=== PATIENT | male | born 1950 | race Caucasian/White ===

== ENCOUNTER 2016-12-23 19:49 | Inpatient (IN) ==
[2016-12-24] MEDS: Levothyroxine 25 MCG TABLET PO SCH (04:49)
[2016-12-24 05:38] LABS: INR 1.1; Prothrombin Time 12.2 Seconds (9.4-12.1)
[2016-12-24 05:39] LABS: Basophils # 0.1 K/mcL (0.0-0.2); Basophils % 0.9 %; Eosinophils # 0.3 K/mcL (0.0-0.6); Eosinophils % 2.9 %; Hematocrit 41.4 % (37.5-50.1); Hemoglobin 13.9 g/dL (12.9-16.9); Lymphocytes % 21.5 %; Mean Corpuscular HGB Conc 33.6 g/dL (31.6-35.5); Mean Corpuscular Hemoglobin 29.3 pg (28.0-33.3); Mean Corpuscular Volume 87.3 fL (83.0-100.0); Mean Platelet Volume 10.1 fL (9.4-12.4); Monocytes # 0.7 K/mcL (0.0-1.3); Monocytes % 7.5 %; Platelet Count 315 K/mcL (140-400); Red Blood Count 4.74 M/mcL (4.19-5.50); Red Cell Distribution Width 13.2 % (11.5-14.5); Segmented Neutrophils % 66.2 %
[2016-12-24 05:41] LABS: Activated Partial Thrombo Time 28.6 Seconds (26.0-36.0)
[2016-12-24 05:45] LABS: BUN/Creatinine Ratio 10 (6-26); Blood Urea Nitrogen 13 mg/dL (8-26); Calcium 9.6 mg/dL (8.6-10.8); Carbon Dioxide 26 mEq/L (19-29); Chloride 103 mEq/L (98-109); Glucose 103 mg/dL (70-99); Osmolality,Calculated 286 (280-300); Potassium 4.2 mEq/L (3.5-4.5); Sodium 138 mEq/L (136-145); eGFR For African Americans > 60 (> 60); eGFR For Non-African Americans 58 (> 60)
[2016-12-24] MEDS: Cortisporin *EAR* SOLN 10 ML BOTTLE OT SCH ×5 (06:39→21:15)
--- NOTE | 2016-12-24 08:19 | Internal Med History&Physical ---
Date of Encounter: 12/24/16 Time of Encounter: 08:16 Assessment and Plan (1) CVA (cerebrovascular accident due to intracerebral hemorrhage) Current visit: Yes Status: Acute He initially presented to the hospital for cardiac catheterization after an abnormal stress test. He had PCI of the RCA on 12/09 2016. Postcatheterization stroke alert was called for change in mental status. Patient was found to have a large intraparenchymal hemorrhage involving the left temporal parietal occipital region with edema and midline shift. Patient was to continue her surgery. It was believed to be a bleed secondary to antiplatelet agents. There were no major vascular abnormalities in CTA repeat imaging's were stable without any progression. Patient also developed paroxysmal atrial flutter. He was controlled with medication. Patient has a language impairment. Patient is having some behavioral issues with poor by mouth intake initially. Patient is a phasic with some words but unclear. PT OT and speech will be consult. Qualifiers: Intracerebral hemorrhage etiology: nontraumatic Cerebral hemorrhage location: unspecified cerebral location Laterality: unspecified laterality Qualified Code(s): I61.9 - Nontraumatic intracerebral hemorrhage, unspecified Internal Medicine - H&P: HPI Admitted From: Intrahospital Transfer Plans for Post Hospital Care: Home History of present illness: Mr. Herndon is a 66 year old male who is transferred to this facility for rehabilitation. He initially presented to the hospital for cardiac catheterization after an abnormal stress test. He had PCI of the RCA on 2016. Postcatheterization stroke alert was called for change in mental status. Patient was found to have a large intraparenchymal hemorrhage involving the left temporal parietal occipital region with edema and midline shift. Patient was to continue her surgery. It was believed to be a bleed secondary to antiplatelet agents. There were no major vascular abnormalities in CTA repeat imaging's were stable without any progression. Patient also developed paroxysmal atrial flutter. He was controlled with medication. Patient has a language impairment. Patient is having some behavioral issues with poor by mouth intake initially. Patient is a phasic with some words but unclear. Past Med Surg Social Fam HX - Past Medical History Medical history: CVA, hyperlipidemia, hypertension, kidney stones, thyroid disease - Past Surgical History Surgical History: other - Social History Smoking Status: Never smoker Smokeless Tobacco Status: No Alcohol use: occasionally Drug use: none - Family History Brother Living Status: Age at : 58 Hx Family Cardiac Disorders: Yes Internal Medicine - H&P: Meds Amlodipine [Norvasc] 5 mg PO DAILY 12/23/16 [History] Aspirin Enteric Coated [Aspirin EC] 81 mg PO DAILY 12/23/16 [History] Atorvastatin Calcium [Lipitor] 80 mg PO HS 12/23/16 [History] Fenofibrate [Tricor] 54 mg PO DAILY 12/23/16 [History] Metoprolol [Lopressor] 25 mg PO BID 12/23/16 [History] Neomycin/Polymyxin B Sulf/Hc [Afedowds-Zkilpivbd-Fj Ear Susp] 10 ml OT QID 12/23 [History] Allergies No Known Allergies Allergy (Verified 12/23/16 22:09) ROS unobtainable: due to mental status All Systems PM: A 10-system review of systems was performed and is negative for pertinent findings except as documented above in the HPI. - Constitutional Vitals: Temp Pulse Resp BP Pulse Ox 98.6 F 71 19 133/85 98 12/24/16 06:22 12/24/16 06:22 12/24/16 06:22 12/24/16 06:22 12/24/16 06:22 General appearance: Present: A&O X 1, no acute distress - Cardiovascular Cardiovascular exam: Present: +S2. Absent: diastolic murmur, gallop, rubs, systolic murmur - GI/Abdominal GI/Abdominal exam: Present: normal bowel sounds, soft, no peritoneal signs. Absent: distended, tenderness - Extremities Exam Extremities exam: Present: warm, radial pulses palpable and symetrical. Absent : calf tenderness, cyanotic, pedal edema - Neurological Exam Neurological exam: Present: alert, altered, speech deficit - Expanded Neurological Exam Neurological exam expanded: Present: inattentive, receptive aphasia Speech: Present: garbled Internal Med - H&P Results - Labs CBC & Chem 7: 12/24/16 05:00 12/24/16 05:00 Labs: Short CBC 12/24/16 Range/Units 05:00 WBC 9.1 (4.3-11.1) K/mcL Hgb 13.9 (12.9-16.9) g/dL Hct 41.4 (37.5-50.1) % Plt Count 315 (140-400) K/mcL Neutrophils # 6.0 (1.6-8.9) K/mcL BMP 12/24/16 05:00 Sodium 138 Potassium 4.2 Chloride 103 Carbon Dioxide 26 BUN 13 Creatinine 1.24 Glucose 103 H Calcium 9.6 - VTE Documentation of Mechanical Device: Graduated compression elastic hosiery
[2016-12-24] MEDS: Famotidine 20 MG TABLET PO SCH ×2 (09:09→21:16)
[2016-12-24] MEDS: *HR* Amiodarone 200 MG TABLET PO SCH (09:09)
[2016-12-24] MEDS: Aspirin Enteric Coated 81 MG Tablet PO SCH (09:09)
[2016-12-24] MEDS: Sennosides/Docusate Sodium TABLET PO SCH ×2 (09:10→21:16)
--- NOTE | 2016-12-24 15:46 | Physcial Medicine-Consult Note ---
Date of Encounter: 12/24/16 Time of Encounter: 15:41 Physical Medicine - AP (1) CVA (cerebrovascular accident due to intracerebral hemorrhage) Status: Acute Assessment and plan: 1. Mr. Herndon suffers from severe aphasia. Patient suffers from significant ataxia which makes him a significant fall risk. We will continue with intensive PT/OT/ST/TR and rehab psych to address gait, transfers, safety, ADLs, speech, and swallow. I would recommend a sitter for the patient in light of his ataxia, poor insight into his deficits and his fall risk. Estimated length of stay 4-6 weeks. Code(s): I61.9 - Nontraumatic intracerebral hemorrhage, unspecified SNOMED Code(s): 271251406 Physical Medicine - HPI - Data of Consult Consult date: 12/24/16 Requesting Physician: Gilberto Baltazar DO Primary Care Provider: PCP NO - Consult Narrative Reason for consult: Intracranial hemorrhage History of present illness: Mr. Herndon is a 66 year old male who presented to an OSH on 12/09/16 for a cardiac catheterization. Following his catheterization, he developed a headache , difficulty with speech and became somnolent. 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 Patient was not a neurosurgical candidate due to dose of effient. He was treated with mannitol. Patient continues to suffer from severe aphasia and ataxia. He was transferred for inpatient rehabilitation. CC: Gilberto Baltazar DO Past Med Surg Social Fam HX - Past Medical History Medical history: CVA, hyperlipidemia, hypertension, kidney stones, thyroid disease - Past Surgical History Surgical History: other - Social History Smoking Status: Never smoker Smokeless Tobacco Status: No Alcohol use: occasionally Drug use: none - Family History Brother Living Status: Age at : 58 Hx Family Cardiac Disorders: Yes Medications and Allergies Amlodipine [Norvasc] 5 mg PO DAILY 12/23/16 [History] Aspirin Enteric Coated [Aspirin EC] 81 mg PO DAILY 12/23/16 [History] Atorvastatin Calcium [Lipitor] 80 mg PO HS 12/23/16 [History] Fenofibrate [Tricor] 54 mg PO DAILY 12/23/16 [History] Metoprolol [Lopressor] 25 mg PO BID 12/23/16 [History] Neomycin/Polymyxin B Sulf/Hc [Tgxbbghh-Lbufgtizd-Xv Ear Susp] 10 ml OT QID 12/23 [History] Allergies No Known Allergies Allergy (Verified 12/23/16 22:09) ROS unobtainable: due to mental status Physical Medicine - Exam - Constitutional Vitals: Temp Pulse Resp BP Pulse Ox 98.2 F 66 18 92/54 95 12/24/16 11:16 12/24/16 11:16 12/24/16 11:16 12/24/16 11:16 12/24/16 11:16 Exam: Patient is lying in bed. Difficult to rouse. He is unable to follow commands. Not oriented to person, place or date, even with cues. Unable to name simple objects. - Head Head exam: Present: normal inspection - Respiratory Respiratory exam: Present: CTAB - Cardiovascular Cardiovascular exam: Present: RRR - GI/Abdominal GI/Abdominal exam: Present: normal bowel sounds, soft. Absent: tenderness - Extremities Exam Extremities exam: Absent: calf tenderness, tenderness Additional comments: Patient moves all 4 extremities. Unable to perform manual motor testing due to patients cognitive deficits. Physical Medicine - Results - Labs CBC & Chem 7: 12/24/16 05:00 12/24/16 05:00 Labs: Short CBC 12/24/16 Range/Units 05:00 WBC 9.1 (4.3-11.1) K/mcL Hgb 13.9 (12.9-16.9) g/dL Hct 41.4 (37.5-50.1) % Plt Count 315 (140-400) K/mcL Neutrophils # 6.0 (1.6-8.9) K/mcL BMP 12/24/16 05:00 Sodium 138 Potassium 4.2 Chloride 103 Carbon Dioxide 26 BUN 13 Creatinine 1.24 Glucose 103 H Calcium 9.6 Consult Discharge Plan - Plan Referrals: NO,PCP [Primary Care Provider] - (Neo Durbin MD Acct Exec 02/02/17 at 9:15 Himanshu Caraballo MD [facility] 04/15/17 at 8:30 )
[2016-12-24] MEDS: Fenofibrate 54 MG TABLET PO SCH (17:54)
[2016-12-24] MEDS: Mirtazapine 15 MG TABLET PO SCH (21:16)
[2016-12-25] MEDS: Levothyroxine 25 MCG TABLET PO SCH (04:56)
[2016-12-25] MEDS: Famotidine 20 MG TABLET PO SCH ×2 (10:08→21:02)
[2016-12-25] MEDS: Sennosides/Docusate Sodium TABLET PO SCH ×2 (10:08→21:03)
[2016-12-25] MEDS: Aspirin Enteric Coated 81 MG Tablet PO SCH (10:11)
[2016-12-25] MEDS: *HR* Amiodarone 200 MG TABLET PO SCH (10:11)
[2016-12-25] MEDS: Cortisporin *EAR* SOLN 10 ML BOTTLE OT SCH ×3 (10:12→21:02)
--- NOTE | 2016-12-25 14:27 | Internal Med Progress Note ---
Date of Encounter: 12/25/16 Time of Encounter: 14:00 - Assessment and plan (1) CVA (cerebrovascular accident due to intracerebral hemorrhage) Current Visit: Yes Status: Acute Assessment and plan: Since had a CVA and this is affecting cognitive speech and function physically Qualifiers: Intracerebral hemorrhage etiology: nontraumatic Cerebral hemorrhage location: unspecified cerebral location Laterality: unspecified laterality Qualified Code(s): I61.9 - Nontraumatic intracerebral hemorrhage, unspecified - Time Spent With Patient less than 15 minutes - Subjective Interval history: Patient was not interested in therapy was widening in complaining in and we had to abbreviate his session. He is really not cooperating and lying with his head on his arms on the desk. - Constitutional Vitals: Temp Pulse Resp BP Pulse Ox 97.8 F 75 18 94/55 96 12/25/16 06:57 12/25/16 06:57 12/25/16 06:57 12/25/16 06:57 12/25/16 06:57 General appearance: Present: A&O X 1, no acute distress - Head Head exam: Present: atraumatic, normal inspection, normocephalic - Neck Neck exam general surgery: Present: supple, trachea midline. Absent: lymphadenopathy - Respiratory Respiratory exam: Present: CTAB. Absent: accessory muscle use, rales, rhonchi, wheezes - Cardiovascular Cardiovascular exam: Present: RRR, +S1, +S2. Absent: diastolic murmur, gallop, rubs, systolic murmur - GI/Abdominal GI/Abdominal exam: Present: normal bowel sounds, soft, no peritoneal signs. Absent: distended, tenderness Internal Medicine: Result - Labs CBC & Chem 7: 12/24/16 05:00 12/24/16 05:00 Labs: Lab is stable - ABG Interpretation ABG results: PT/INR, D-dimer PT 12.2 Seconds (9.4-12.1) H 12/24/16 05:00 - VTE Documentation of Mechanical Device: Graduated compression elastic hosiery Consult Discharge Plan - Plan Referrals: NO,PCP [Primary Care Provider] - (Neo Durbin MD Loss Prevention Consultant 02/02/17 at 9:15 Himanshu Caraballo MD [facility] 04/15/17 at 8:30 )
[2016-12-25] MEDS: Fenofibrate 54 MG TABLET PO SCH (18:44)
[2016-12-25] MEDS: Mirtazapine 15 MG TABLET PO SCH (21:03)
[2016-12-26] MEDS: Levothyroxine 25 MCG TABLET PO SCH (05:48)
[2016-12-26] MEDS: Famotidine 20 MG TABLET PO SCH ×2 (08:16→20:15)
[2016-12-26] MEDS: *HR* Amiodarone 200 MG TABLET PO SCH (08:16)
[2016-12-26] MEDS: Aspirin Enteric Coated 81 MG Tablet PO SCH (08:17)
[2016-12-26] MEDS: Sennosides/Docusate Sodium TABLET PO SCH ×2 (08:18→20:15)
[2016-12-26] MEDS: Cortisporin *EAR* SOLN 10 ML BOTTLE OT SCH ×2 (10:24→16:18)
--- NOTE | 2016-12-26 15:34 | Internal Med Progress Note ---
Date of Encounter: 12/26/16 Time of Encounter: 15:00 - Assessment and plan (1) CVA (cerebrovascular accident due to intracerebral hemorrhage) Current Visit: Yes Status: Acute Assessment and plan: Patient had a cardiac catheter with stenting and subsequent left intraparenchymal bleed from the anabaptist area around the occipital. Qualifiers: Intracerebral hemorrhage etiology: nontraumatic Cerebral hemorrhage location: unspecified cerebral location Laterality: unspecified laterality Qualified Code(s): I61.9 - Nontraumatic intracerebral hemorrhage, unspecified - Time Spent With Patient less than 15 minutes - Subjective Interval history: Patient in my opinion shown significant improvement the last day or so. He still has a lot of trouble with word finding and but occasionally does say something that is coated.. - Constitutional Vitals: Temp Pulse Resp BP Pulse Ox 99.2 F 57 18 94/54 97 12/26/16 07:47 12/26/16 07:47 12/26/16 07:47 12/26/16 07:47 12/26/16 07:47 General appearance: Present: A&O X 1, no acute distress - Head Head exam: Present: atraumatic, normal inspection, normocephalic - Respiratory Respiratory exam: Present: CTAB. Absent: accessory muscle use, rales, rhonchi, wheezes - Cardiovascular Cardiovascular exam: Present: RRR, +S1, +S2. Absent: diastolic murmur, gallop, rubs, systolic murmur - GI/Abdominal GI/Abdominal exam: Present: normal bowel sounds, soft, no peritoneal signs. Absent: distended, tenderness Internal Medicine: Result - Labs CBC & Chem 7: 12/24/16 05:00 12/24/16 05:00 Labs: Laboratory data is stable - ABG Interpretation ABG results: PT/INR, D-dimer PT 12.2 Seconds (9.4-12.1) H 12/24/16 05:00 - VTE Documentation of Mechanical Device: Graduated compression elastic hosiery Consult Discharge Plan - Plan Referrals: NO,PCP [Primary Care Provider] - (Neo Durbin MD [employer] Worker 02/02/17 at 9:15 Himanshu Caraballo MD [facility] 04/15/17 at 8:30 )
[2016-12-26] MEDS: Fenofibrate 54 MG TABLET PO SCH (19:02)
[2016-12-26] MEDS: Mirtazapine 15 MG TABLET PO SCH (20:15)
[2016-12-27] MEDS: Levothyroxine 25 MCG TABLET PO SCH (05:38)
--- NOTE | 2016-12-27 08:56 | Internal Med Progress Note ---
Date of Encounter: 12/27/16 Time of Encounter: 08:54 - Assessment and plan (1) CVA (cerebrovascular accident due to intracerebral hemorrhage) Current Visit: Yes Status: Acute Assessment and plan: Mr. Herndon suffers from severe aphasia. Patient suffers from significant ataxia which makes him a significant fall risk. We will continue with intensive PT/OT/ST/TR and rehab psych to address gait, transfers, safety, ADLs, speech, and swallow. Qualifiers: Intracerebral hemorrhage etiology: nontraumatic Cerebral hemorrhage location: unspecified cerebral location Laterality: unspecified laterality Qualified Code(s): I61.9 - Nontraumatic intracerebral hemorrhage, unspecified - Time Spent With Patient less than 15 minutes - Subjective Interval history: No new voiced complaint. Still complains of generalized weakness. - Constitutional Vitals: Temp Pulse Resp BP Pulse Ox 98.3 F 90 16 91/58 96 12/26/16 18:47 12/26/16 18:47 12/26/16 18:47 12/26/16 18:47 12/26/16 18:47 General appearance: Present: A&O X 1, no acute distress - Respiratory Respiratory exam: Present: CTAB. Absent: accessory muscle use, rales, rhonchi, wheezes - Cardiovascular Cardiovascular exam: Present: RRR, +S1, +S2. Absent: diastolic murmur, gallop, rubs, systolic murmur - GI/Abdominal GI/Abdominal exam: Present: normal bowel sounds, soft, no peritoneal signs. Absent: distended, tenderness - Extremities Exam Extremities exam: Present: warm, radial pulses palpable and symetrical. Absent : calf tenderness, cyanotic, pedal edema - Expanded Neurological Exam Neurological exam expanded: Present: expressive aphasia, receptive aphasia Internal Medicine: Result - Labs CBC & Chem 7: 12/24/16 05:00 12/24/16 05:00 - ABG Interpretation ABG results: PT/INR, D-dimer PT 12.2 Seconds (9.4-12.1) H 12/24/16 05:00 - VTE Documentation of Mechanical Device: Graduated compression elastic hosiery Consult Discharge Plan - Plan Referrals: NO,PCP [Primary Care Provider] - (Neo Durbin MD Certifier 02/02/17 at 9:15 Himanshu Caraballo MD [facility] 04/15/17 at 8:30 )
[2016-12-27] MEDS: *HR* Amiodarone 200 MG TABLET PO SCH (09:00)
[2016-12-27] MEDS: Aspirin Enteric Coated 81 MG Tablet PO SCH (09:00)
[2016-12-27] MEDS: Sennosides/Docusate Sodium TABLET PO SCH ×2 (09:04→20:53)
[2016-12-27] MEDS: Famotidine 20 MG TABLET PO SCH ×2 (09:04→20:53)
[2016-12-27] MEDS: Fenofibrate 54 MG TABLET PO SCH (17:50)
[2016-12-27] MEDS: Mirtazapine 15 MG TABLET PO SCH (20:54)
[2016-12-28] MEDS: Levothyroxine 25 MCG TABLET PO SCH (05:40)
[2016-12-28] MEDS: *HR* Amiodarone 200 MG TABLET PO SCH (08:49)
[2016-12-28] MEDS: Famotidine 20 MG TABLET PO SCH ×2 (08:49→20:14)
[2016-12-28] MEDS: Sennosides/Docusate Sodium TABLET PO SCH ×2 (08:49→20:14)
[2016-12-28] MEDS: Aspirin Enteric Coated 81 MG Tablet PO SCH (08:49)
--- NOTE | 2016-12-28 11:43 | Internal Med Progress Note ---
Date of Encounter: 12/28/16 Time of Encounter: 11:42 - Assessment and plan (1) CVA (cerebrovascular accident due to intracerebral hemorrhage) Current Visit: Yes Status: Acute Assessment and plan: She does have a pretty significant intracerebral bleed left brain Qualifiers: Intracerebral hemorrhage etiology: nontraumatic Cerebral hemorrhage location: unspecified cerebral location Laterality: left Qualified Code(s): I61.9 - Nontraumatic intracerebral hemorrhage, unspecified - Time Spent With Patient less than 15 minutes - Subjective Interval history: Patient in my opinion shown significant improvement the last day or so. He still has a lot of trouble with word finding and but occasionally does say something that is coated.. - Constitutional Vitals: Temp Pulse Resp BP Pulse Ox 98.6 F 71 18 99/64 97 12/28/16 07:39 12/28/16 07:39 12/28/16 07:39 12/28/16 07:39 12/28/16 07:39 General appearance: Present: A&O X 1, no acute distress - Head Head exam: Present: atraumatic, normal inspection, normocephalic - Neck Neck exam general surgery: Present: supple, trachea midline. Absent: lymphadenopathy - Respiratory Respiratory exam: Present: CTAB. Absent: accessory muscle use, rales, rhonchi, wheezes - Cardiovascular Cardiovascular exam: Present: RRR, +S1, +S2. Absent: diastolic murmur, gallop, rubs, systolic murmur - GI/Abdominal GI/Abdominal exam: Present: normal bowel sounds, soft, no peritoneal signs. Absent: distended, tenderness Internal Medicine: Result - Labs CBC & Chem 7: 12/24/16 05:00 12/24/16 05:00 Labs: Lab is okay - ABG Interpretation ABG results: PT/INR, D-dimer PT 12.2 Seconds (9.4-12.1) H 12/24/16 05:00 - VTE Documentation of Mechanical Device: Graduated compression elastic hosiery Consult Discharge Plan - Plan Referrals: NO,PCP [Primary Care Provider] - (Neo Durbin MD Progress Worker 02/02/17 at 9:15 Himanshu Caraballo MD [facility] 04/15/17 at 8:30 )
[2016-12-28] MEDS: Fenofibrate 54 MG TABLET PO SCH (17:53)
[2016-12-28] MEDS: Mirtazapine 15 MG TABLET PO SCH (20:15)
[2016-12-29 05:33] LABS: Basophils # 0.1 K/mcL (0.0-0.2); Basophils % 1.1 %; Eosinophils # 0.2 K/mcL (0.0-0.6); Eosinophils % 3.1 %; Hematocrit 40.5 % (37.5-50.1); Hemoglobin 13.3 g/dL (12.9-16.9); Lymphocytes # 2.9 K/mcL (0.6-4.6); Lymphocytes % 40.2 %; Mean Corpuscular HGB Conc 32.8 g/dL (31.6-35.5); Mean Corpuscular Hemoglobin 29.2 pg (28.0-33.3); Mean Platelet Volume 9.9 fL (9.4-12.4); Monocytes # 0.5 K/mcL (0.0-1.3); Monocytes % 7.4 %; Neutrophils # 3.5 K/mcL (1.6-8.9); Platelet Count 381 K/mcL (140-400); Red Blood Count 4.55 M/mcL (4.19-5.50); Segmented Neutrophils % 47.2 %
[2016-12-29] MEDS: Levothyroxine 25 MCG TABLET PO SCH (05:41)
[2016-12-29 05:44] LABS: BUN/Creatinine Ratio 12 (6-26); Blood Urea Nitrogen 17 mg/dL (8-26); Calcium 9.7 mg/dL (8.6-10.8); Carbon Dioxide 25 mEq/L (19-29); Chloride 105 mEq/L (98-109); Glucose 93 mg/dL (70-99); Osmolality,Calculated 289 (280-300); Potassium 4.5 mEq/L (3.5-4.5); Sodium 139 mEq/L (136-145); eGFR For African Americans > 60 (> 60); eGFR For Non-African Americans 51 (> 60)
[2016-12-29] MEDS: Famotidine 20 MG TABLET PO SCH ×2 (10:46→20:10)
[2016-12-29] MEDS: *HR* Amiodarone 200 MG TABLET PO SCH (10:46)
[2016-12-29] MEDS: Aspirin Enteric Coated 81 MG Tablet PO SCH (10:46)
[2016-12-29] MEDS: Sennosides/Docusate Sodium TABLET PO SCH ×2 (10:46→20:11)
--- NOTE | 2016-12-29 13:10 | Internal Med Progress Note ---
Date of Encounter: 12/29/16 Time of Encounter: 13:09 - Assessment and plan (1) CVA (cerebrovascular accident due to intracerebral hemorrhage) Current Visit: Yes Status: Acute Assessment and plan: PT and OT continue to work on improving independent ADL Qualifiers: Intracerebral hemorrhage etiology: nontraumatic Cerebral hemorrhage location: unspecified cerebral location Laterality: left Qualified Code(s): I61.9 - Nontraumatic intracerebral hemorrhage, unspecified - Subjective Interval history: No new voiced complaint. Still complains of generalized weakness. - Constitutional Vitals: Temp Pulse Resp BP Pulse Ox 98.6 F 71 18 104/70 97 12/29/16 08:00 12/29/16 09:25 12/29/16 09:25 12/29/16 09:25 12/29/16 09:25 General appearance: Present: A&O X 1, no acute distress - Respiratory Respiratory exam: Present: CTAB. Absent: accessory muscle use, rales, rhonchi, wheezes - Cardiovascular Cardiovascular exam: Present: RRR, +S1, +S2. Absent: diastolic murmur, gallop, rubs, systolic murmur - GI/Abdominal GI/Abdominal exam: Present: normal bowel sounds, soft, no peritoneal signs. Absent: distended, tenderness - Expanded Neurological Exam Neurological exam expanded: Present: expressive aphasia Speech: Present: expressive aphasia Internal Medicine: Result - Labs CBC & Chem 7: 12/29/16 04:40 12/29/16 04:40 Labs: Short CBC 12/29/16 Range/Units 04:40 WBC 7.3 (4.3-11.1) K/mcL Hgb 13.3 (12.9-16.9) g/dL Hct 40.5 (37.5-50.1) % Plt Count 381 (140-400) K/mcL Neutrophils # 3.5 (1.6-8.9) K/mcL BMP 12/29/16 04:40 Sodium 139 Potassium 4.5 Chloride 105 Carbon Dioxide 25 BUN 17 Creatinine 1.39 H Glucose 93 Calcium 9.7 - ABG Interpretation ABG results: PT/INR, D-dimer PT 12.2 Seconds (9.4-12.1) H 12/24/16 05:00 - VTE Documentation of Mechanical Device: Graduated compression elastic hosiery Consult Discharge Plan - Plan Referrals: NO,PCP [Primary Care Provider] - (Neo Durbin MD [employer] Installation Crew Supervisor 02/02/17 at 9:15 Himanshu Caraballo MD [facility] 04/15/17 at 8:30 )
[2016-12-29] MEDS: Fenofibrate 54 MG TABLET PO SCH (17:21)
[2016-12-29] MEDS: Mirtazapine 15 MG TABLET PO SCH (20:11)
[2016-12-30] MEDS: Levothyroxine 25 MCG TABLET PO SCH (05:20)
[2016-12-30] MEDS: Famotidine 20 MG TABLET PO SCH ×2 (08:17→20:28)
[2016-12-30] MEDS: Sennosides/Docusate Sodium TABLET PO SCH ×2 (08:17→20:29)
[2016-12-30] MEDS: Aspirin Enteric Coated 81 MG Tablet PO SCH (08:18)
[2016-12-30] MEDS: *HR* Amiodarone 200 MG TABLET PO SCH (08:18)
--- NOTE | 2016-12-30 14:23 | Internal Med Progress Note ---
Date of Encounter: 12/30/16 Time of Encounter: 14:00 - Assessment and plan (1) CVA (cerebrovascular accident due to intracerebral hemorrhage) Current Visit: Yes Status: Acute Assessment and plan: Patient had trouble with directions but is improving along with speech is cerebral. Even cognitive is Qualifiers: Intracerebral hemorrhage etiology: nontraumatic Cerebral hemorrhage location: unspecified cerebral location Laterality: left Qualified Code(s): I61.9 - Nontraumatic intracerebral hemorrhage, unspecified - Time Spent With Patient less than 15 minutes - Subjective Interval history: She gets fatigued very easily and then stops apparently understanding directions etc. But he is talking better he is making more sense and responding to therapist. - Constitutional Vitals: Temp Pulse Resp BP Pulse Ox 97.9 F 68 16 100/56 96 12/30/16 07:00 12/30/16 07:00 12/30/16 07:00 12/30/16 07:00 12/30/16 07:00 General appearance: Present: A&O X 1, no acute distress - Head Head exam: Present: atraumatic, normal inspection, normocephalic - Neck Neck exam general surgery: Present: supple, trachea midline. Absent: lymphadenopathy - Respiratory Respiratory exam: Present: CTAB. Absent: accessory muscle use, rales, rhonchi, wheezes - Cardiovascular Cardiovascular exam: Present: RRR, +S1, +S2. Absent: diastolic murmur, gallop, rubs, systolic murmur Internal Medicine: Result - Labs CBC & Chem 7: 12/29/16 04:40 12/29/16 04:40 Labs: Overall improvement - ABG Interpretation ABG results: PT/INR, D-dimer PT 12.2 Seconds (9.4-12.1) H 12/24/16 05:00 - VTE Documentation of Mechanical Device: Graduated compression elastic hosiery Consult Discharge Plan - Plan Referrals: NO,PCP [Primary Care Provider] - (Neo Durbin MD [employer] Supervisor 02/02/17 at 9:15 Himanshu Caraballo MD [facility] 04/15/17 at 8:30 )
[2016-12-30] MEDS: Fenofibrate 54 MG TABLET PO SCH (16:53)
[2016-12-30] MEDS: Mirtazapine 15 MG TABLET PO SCH (20:28)
[2016-12-31] MEDS: Levothyroxine 25 MCG TABLET PO SCH (04:43)
[2016-12-31] MEDS: Famotidine 20 MG TABLET PO SCH ×2 (08:06→22:48)
[2016-12-31] MEDS: *HR* Amiodarone 200 MG TABLET PO SCH (08:06)
[2016-12-31] MEDS: Aspirin Enteric Coated 81 MG Tablet PO SCH (08:06)
[2016-12-31] MEDS: Sennosides/Docusate Sodium TABLET PO SCH ×2 (08:07→22:48)
--- NOTE | 2016-12-31 14:26 | Internal Med Progress Note ---
Date of Encounter: 12/31/16 Time of Encounter: 14:23 - Assessment and plan (1) CVA (cerebrovascular accident due to intracerebral hemorrhage) Current Visit: Yes Status: Acute Assessment and plan: Patient's working with the therapist and is making progress Qualifiers: Intracerebral hemorrhage etiology: nontraumatic Cerebral hemorrhage location: unspecified cerebral location Laterality: left Qualified Code(s): I61.9 - Nontraumatic intracerebral hemorrhage, unspecified - Time Spent With Patient less than 15 minutes - Subjective Interval history: She gets fatigued very easily and then stops apparently understanding directions etc. But he is talking better he is making more sense and responding to therapist. Still hard to follow directions but is participating more and I think is making progress - Constitutional Vitals: Temp Pulse Resp BP Pulse Ox 97.7 F 87 16 104/63 93 L 12/31/16 14:05 12/31/16 14:05 12/31/16 14:05 12/31/16 14:05 12/31/16 14:05 General appearance: Present: A&O X 1, no acute distress - Head Head exam: Present: atraumatic, normal inspection, normocephalic - Neck Neck exam general surgery: Present: supple, trachea midline. Absent: lymphadenopathy - Respiratory Respiratory exam: Present: CTAB. Absent: accessory muscle use, rales, rhonchi, wheezes - Cardiovascular Cardiovascular exam: Present: RRR, +S1, +S2. Absent: diastolic murmur, gallop, rubs, systolic murmur - GI/Abdominal GI/Abdominal exam: Present: normal bowel sounds, soft, no peritoneal signs. Absent: distended, tenderness Internal Medicine: Result - Labs CBC & Chem 7: 12/29/16 04:40 12/29/16 04:40 Labs: Lab function is normal - ABG Interpretation ABG results: PT/INR, D-dimer PT 12.2 Seconds (9.4-12.1) H 12/24/16 05:00 - VTE Documentation of Mechanical Device: Graduated compression elastic hosiery Consult Discharge Plan - Plan Referrals: NO,PCP [Primary Care Provider] - (Neo Durbin MD Emergency Management Specialist 02/02/17 at 9:15 Himanshu Caraballo MD [facility] 04/15/17 at 8:30 )
[2016-12-31] MEDS: Fenofibrate 54 MG TABLET PO SCH (16:58)
[2016-12-31] MEDS: Mirtazapine 15 MG TABLET PO SCH (22:48)
[2017-01-01] MEDS: Levothyroxine 25 MCG TABLET PO SCH (06:22)
[2017-01-01] MEDS: Aspirin Enteric Coated 81 MG Tablet PO SCH (09:02)
[2017-01-01] MEDS: Famotidine 20 MG TABLET PO SCH ×2 (09:03→20:28)
[2017-01-01] MEDS: *HR* Amiodarone 200 MG TABLET PO SCH (09:03)
[2017-01-01] MEDS: Sennosides/Docusate Sodium TABLET PO SCH ×2 (09:03→20:28)
--- NOTE | 2017-01-01 15:23 | Internal Med Progress Note ---
Date of Encounter: 01/01/17 Time of Encounter: 15:00 - Assessment and plan (1) CVA (cerebrovascular accident due to intracerebral hemorrhage) Current Visit: Yes Status: Acute Assessment and plan: Patient actually is much better even today he was walking with less assistance in the hallway Qualifiers: Intracerebral hemorrhage etiology: nontraumatic Cerebral hemorrhage location: unspecified cerebral location Laterality: left Qualified Code(s): I61.9 - Nontraumatic intracerebral hemorrhage, unspecified - Time Spent With Patient less than 15 minutes - Subjective Interval history: She gets fatigued very easily and then stops apparently understanding directions etc. But he is talking better he is making more sense and responding to therapist. Still hard to follow directions but is participating more and I think is making progress - Constitutional Vitals: Temp Pulse Resp BP Pulse Ox 98.3 F 64 16 116/64 95 01/01/17 07:27 01/01/17 07:27 01/01/17 07:27 01/01/17 07:27 01/01/17 07:27 General appearance: Present: A&O X 1, no acute distress - Head Head exam: Present: atraumatic, normal inspection, normocephalic - Neck Neck exam general surgery: Present: supple, trachea midline. Absent: lymphadenopathy - Respiratory Respiratory exam: Present: CTAB. Absent: accessory muscle use, rales, rhonchi, wheezes - Cardiovascular Cardiovascular exam: Present: RRR, +S1, +S2. Absent: diastolic murmur, gallop, rubs, systolic murmur Internal Medicine: Result - Labs CBC & Chem 7: 12/29/16 04:40 12/29/16 04:40 Labs: Lab is stable - ABG Interpretation ABG results: PT/INR, D-dimer PT 12.2 Seconds (9.4-12.1) H 12/24/16 05:00 - VTE Documentation of Mechanical Device: Graduated compression elastic hosiery Consult Discharge Plan - Plan Referrals: NO,PCP [Primary Care Provider] - (Neo Durbin MD Family Service Counselor 02/02/17 at 9:15 Himanshu Caraballo MD [facility] 04/15/17 at 8:30 )
[2017-01-01] MEDS: Fenofibrate 54 MG TABLET PO SCH (18:31)
[2017-01-01] MEDS: Mirtazapine 15 MG TABLET PO SCH (20:28)
[2017-01-02] MEDS: Levothyroxine 25 MCG TABLET PO SCH (06:39)
[2017-01-02] MEDS: Famotidine 20 MG TABLET PO SCH ×2 (09:25→21:09)
[2017-01-02] MEDS: Aspirin Enteric Coated 81 MG Tablet PO SCH (09:25)
[2017-01-02] MEDS: *HR* Amiodarone 200 MG TABLET PO SCH (09:25)
[2017-01-02] MEDS: Sennosides/Docusate Sodium TABLET PO SCH ×2 (09:26→21:08)
--- NOTE | 2017-01-02 13:39 | Internal Med Progress Note ---
Date of Encounter: 01/02/17 Time of Encounter: 14:00 - Assessment and plan (1) CVA (cerebrovascular accident due to intracerebral hemorrhage) Current Visit: Yes Status: Acute Assessment and plan: CVA patient's working with PT OT TR and speech Qualifiers: Intracerebral hemorrhage etiology: nontraumatic Cerebral hemorrhage location: unspecified cerebral location Laterality: left Qualified Code(s): I61.9 - Nontraumatic intracerebral hemorrhage, unspecified - Time Spent With Patient less than 15 minutes - Subjective Interval history: Ambulating with assistance of one person. This has improved significantly - Constitutional Vitals: Temp Pulse Resp BP Pulse Ox 97.3 F L 79 16 105/72 93 L 01/02/17 07:55 01/02/17 07:55 01/02/17 07:55 01/02/17 07:55 01/02/17 07:55 General appearance: Present: A&O X 1, no acute distress - Head Head exam: Present: atraumatic, normocephalic - Respiratory Respiratory exam: Present: CTAB. Absent: accessory muscle use, rales, rhonchi, wheezes - Cardiovascular Cardiovascular exam: Present: RRR, +S1, +S2. Absent: diastolic murmur, gallop, rubs, systolic murmur Internal Medicine: Result - Labs CBC & Chem 7: 12/29/16 04:40 12/29/16 04:40 Labs: Lab looks good - ABG Interpretation ABG results: PT/INR, D-dimer PT 12.2 Seconds (9.4-12.1) H 12/24/16 05:00 - VTE Documentation of Mechanical Device: Graduated compression elastic hosiery Consult Discharge Plan - Plan Referrals: NO,PCP [Primary Care Provider] - (Neo Durbin MD Final Finisher 02/02/17 at 9:[address] [facility] 04/15/17 at 8:30 )
[2017-01-02] MEDS: Fenofibrate 54 MG TABLET PO SCH (17:30)
[2017-01-02] MEDS: Mirtazapine 15 MG TABLET PO SCH (21:09)
[2017-01-03] MEDS: Levothyroxine 25 MCG TABLET PO SCH (06:40)
[2017-01-03] MEDS: Famotidine 20 MG TABLET PO SCH ×2 (08:54→22:19)
[2017-01-03] MEDS: Aspirin Enteric Coated 81 MG Tablet PO SCH (08:55)
[2017-01-03] MEDS: Sennosides/Docusate Sodium TABLET PO SCH ×2 (08:55→22:19)
[2017-01-03] MEDS: *HR* Amiodarone 200 MG TABLET PO SCH (08:56)
[2017-01-03] MEDS: Fenofibrate 54 MG TABLET PO SCH (17:42)
--- NOTE | 2017-01-03 21:49 | Internal Med Progress Note ---
Date of Encounter: 01/03/17 Time of Encounter: 21:47 - Assessment and plan (1) CVA (cerebrovascular accident due to intracerebral hemorrhage) Current Visit: Yes Status: Acute Assessment and plan: Balance better. Aphasia improving. . Qualifiers: Intracerebral hemorrhage etiology: nontraumatic Cerebral hemorrhage location: unspecified cerebral location Laterality: left Qualified Code(s): I61.9 - Nontraumatic intracerebral hemorrhage, unspecified - Time Spent With Patient less than 15 minutes - Subjective Interval history: H No new voiced complaint. Still complains of generalized weakness. - Constitutional Vitals: Temp Pulse Resp BP Pulse Ox 99.1 F 70 18 120/65 94 L 01/03/17 20:00 01/03/17 20:00 01/03/17 20:00 01/03/17 20:00 01/03/17 20:00 General appearance: Present: A&O X 1, no acute distress - Respiratory Respiratory exam: Present: CTAB. Absent: accessory muscle use, rales, rhonchi, wheezes - Cardiovascular Cardiovascular exam: Present: RRR, +S1, +S2. Absent: diastolic murmur, gallop, rubs, systolic murmur - GI/Abdominal GI/Abdominal exam: Present: normal bowel sounds, soft, no peritoneal signs. Absent: distended, tenderness - Expanded Neurological Exam Neurological exam expanded: Present: expressive aphasia, inattentive Speech: Present: expressive aphasia - Psychiatric Psychiatric exam: Present: depressed Internal Medicine: Result - Labs CBC & Chem 7: 12/29/16 04:40 12/29/16 04:40 - ABG Interpretation ABG results: PT/INR, D-dimer PT 12.2 Seconds (9.4-12.1) H 12/24/16 05:00 - VTE Documentation of Mechanical Device: Graduated compression elastic hosiery Consult Discharge Plan - Plan Referrals: NO,PCP [Primary Care Provider] - (Neo Durbin MD Area Sales Manager 02/02/17 at 9:15 Himanshu Caraballo MD [facility] 04/15/17 at 8:30 )
--- NOTE | 2017-01-03 21:52 | Internal Med Progress Note ---
Date of Encounter: 01/04/17 - Assessment and plan (1) CVA (cerebrovascular accident due to intracerebral hemorrhage) Current Visit: Yes Status: Acute Assessment and plan: Balance better. Aphasia improving. . Patient suffers from significant ataxia which makes him a significant fall risk. We will continue with intensive PT/OT/ ST/TR and rehab psych to address gait, transfers, safety, ADLs, speech, and swallow. . Qualifiers: Intracerebral hemorrhage etiology: nontraumatic Cerebral hemorrhage location: unspecified cerebral location Laterality: left Qualified Code(s): I61.9 - Nontraumatic intracerebral hemorrhage, unspecified - Subjective Interval history: H No new voiced complaint. Still complains of generalized weakness. - Constitutional Vitals: Temp Pulse Resp BP Pulse Ox 99.1 F 70 18 120/65 94 L 01/03/17 20:00 01/03/17 20:00 01/03/17 20:00 01/03/17 20:00 01/03/17 20:00 General appearance: Present: A&O X 1, no acute distress - Respiratory Respiratory exam: Present: CTAB. Absent: accessory muscle use, rales, rhonchi, wheezes - Cardiovascular Cardiovascular exam: Present: RRR, +S1, +S2. Absent: diastolic murmur, gallop, rubs, systolic murmur - GI/Abdominal GI/Abdominal exam: Present: normal bowel sounds, soft, no peritoneal signs. Absent: distended, tenderness - Expanded Neurological Exam Neurological exam expanded: Present: expressive aphasia Speech: Present: expressive aphasia Internal Medicine: Result - Labs CBC & Chem 7: 12/29/16 04:40 12/29/16 04:40 - ABG Interpretation ABG results: PT/INR, D-dimer PT 12.2 Seconds (9.4-12.1) H 12/24/16 05:00 - VTE Documentation of Mechanical Device: Graduated compression elastic hosiery Consult Discharge Plan - Plan Referrals: NO,PCP [Primary Care Provider] - (Neo Durbin MD Nurse Anesthesia Program Director 02/02/17 at 9:15 Himanshu Caraballo MD [facility] 04/15/17 at 8:30 )
[2017-01-03] MEDS: Mirtazapine 15 MG TABLET PO SCH (22:19)
[2017-01-04] MEDS: Levothyroxine 25 MCG TABLET PO SCH (06:19)
[2017-01-04] MEDS: Sennosides/Docusate Sodium TABLET PO SCH ×2 (08:31→20:45)
[2017-01-04] MEDS: Aspirin Enteric Coated 81 MG Tablet PO SCH (08:32)
[2017-01-04] MEDS: *HR* Amiodarone 200 MG TABLET PO SCH (08:32)
[2017-01-04] MEDS: Famotidine 20 MG TABLET PO SCH ×2 (08:32→20:50)
--- NOTE | 2017-01-04 09:49 | Internal Med Progress Note ---
Date of Encounter: 01/04/17 Time of Encounter: 09:48 - Assessment and plan (1) CVA (cerebrovascular accident due to intracerebral hemorrhage) Current Visit: Yes Status: Acute Assessment and plan: PT OT working on improving balance, gait, safety improving ADL. Speech improving. Qualifiers: Intracerebral hemorrhage etiology: nontraumatic Cerebral hemorrhage location: unspecified cerebral location Laterality: left Qualified Code(s): I61.9 - Nontraumatic intracerebral hemorrhage, unspecified - Subjective Interval history: No new voiced complaint. No shortness of breath. No chest pain. He states he feels better. - Constitutional Vitals: Temp Pulse Resp BP Pulse Ox 98.1 F 71 16 124/83 93 L 01/04/17 07:35 01/04/17 08:24 01/04/17 07:35 01/04/17 08:24 01/04/17 07:35 General appearance: Present: A&O X 1, no acute distress - Respiratory Respiratory exam: Present: CTAB. Absent: accessory muscle use, rales, rhonchi, wheezes - Cardiovascular Cardiovascular exam: Present: RRR, +S1, +S2. Absent: diastolic murmur, gallop, rubs, systolic murmur - GI/Abdominal GI/Abdominal exam: Present: normal bowel sounds, soft, no peritoneal signs. Absent: distended, tenderness - Extremities Exam Extremities exam: Present: warm, radial pulses palpable and symetrical. Absent : calf tenderness, cyanotic, pedal edema - Expanded Neurological Exam Speech: Present: expressive aphasia Internal Medicine: Result - Labs CBC & Chem 7: 12/29/16 04:40 12/29/16 04:40 - ABG Interpretation ABG results: PT/INR, D-dimer PT 12.2 Seconds (9.4-12.1) H 12/24/16 05:00 - VTE Documentation of Mechanical Device: Graduated compression elastic hosiery Consult Discharge Plan - Plan Referrals: NO,PCP [Primary Care Provider] - (Neo Durbin MD Endless Bed Drum Sander 02/02/17 at 9:15 Himanshu Caraballo MD [facility] 04/15/17 at 8:30 )
[2017-01-04] MEDS: Fenofibrate 54 MG TABLET PO SCH (17:10)
[2017-01-04] MEDS: Mirtazapine 15 MG TABLET PO SCH (20:51)
[2017-01-05 05:52] LABS: Basophils # 0.1 K/mcL (0.0-0.2); Eosinophils # 0.3 K/mcL (0.0-0.6); Eosinophils % 4.3 %; Hematocrit 39.7 % (37.5-50.1); Immature Granulocytes % 0.7 % (0-4); Lymphocytes # 2.5 K/mcL (0.6-4.6); Mean Corpuscular HGB Conc 32.7 g/dL (31.6-35.5); Mean Corpuscular Hemoglobin 29.3 pg (28.0-33.3); Mean Corpuscular Volume 89.6 fL (83.0-100.0); Mean Platelet Volume 10.1 fL (9.4-12.4); Monocytes # 0.5 K/mcL (0.0-1.3); Monocytes % 7.8 %; Neutrophils # 2.6 K/mcL (1.6-8.9); Platelet Count 241 K/mcL (140-400); Red Blood Count 4.43 M/mcL (4.19-5.50); Segmented Neutrophils % 44.2 %
[2017-01-05] MEDS: Levothyroxine 25 MCG TABLET PO SCH (05:55)
[2017-01-05 06:00] LABS: Calcium 9.3 mg/dL (8.6-10.8); Potassium 4.4 mEq/L (3.5-4.5)
[2017-01-05] MEDS: *HR* Amiodarone 200 MG TABLET PO SCH (10:15)
[2017-01-05] MEDS: Aspirin Enteric Coated 81 MG Tablet PO SCH (10:15)
[2017-01-05] MEDS: Famotidine 20 MG TABLET PO SCH ×2 (10:16→22:08)
[2017-01-05] MEDS: Sennosides/Docusate Sodium TABLET PO SCH ×2 (10:16→22:08)
--- NOTE | 2017-01-05 15:28 | Internal Med Progress Note ---
Date of Encounter: 01/05/17 Time of Encounter: 15:00 - Assessment and plan (1) CVA (cerebrovascular accident due to intracerebral hemorrhage) Current Visit: Yes Status: Acute Assessment and plan: Patient is working with the staff at showing excellent progress. Please see notes Qualifiers: Intracerebral hemorrhage etiology: nontraumatic Cerebral hemorrhage location: unspecified cerebral location Laterality: left Qualified Code(s): I61.9 - Nontraumatic intracerebral hemorrhage, unspecified - Time Spent With Patient less than 15 minutes - Subjective Interval history: Patient continues to improve rapidly. He is ambulating talking using stairs and I am just thrilled to over his progress. His speech is better less hesitated . - Constitutional Vitals: Temp Pulse Resp BP Pulse Ox 98.5 F 61 18 103/62 96 01/05/17 07:00 01/05/17 07:00 01/05/17 07:00 01/05/17 07:00 01/05/17 07:00 General appearance: Present: A&O X 1, no acute distress - Head Head exam: Present: atraumatic, normal inspection, normocephalic - Neck Neck exam general surgery: Present: supple, trachea midline. Absent: lymphadenopathy - Respiratory Respiratory exam: Present: CTAB. Absent: accessory muscle use, rales, rhonchi, wheezes - Cardiovascular Cardiovascular exam: Present: RRR, +S1, +S2. Absent: diastolic murmur, gallop, rubs, systolic murmur Internal Medicine: Result - Labs CBC & Chem 7: 01/05/17 04:45 01/05/17 04:45 Labs: Short CBC 01/05/17 Range/Units 04:45 WBC 5.9 (4.3-11.1) K/mcL Hgb 13.0 (12.9-16.9) g/dL Hct 39.7 (37.5-50.1) % Plt Count 241 (140-400) K/mcL Neutrophils # 2.6 (1.6-8.9) K/mcL BMP 01/05/17 04:45 Sodium 141 Potassium 4.4 Chloride 107 Carbon Dioxide 25 BUN 17 Creatinine 1.52 H Glucose 89 Calcium 9.3 Lab is stable - ABG Interpretation ABG results: PT/INR, D-dimer PT 12.2 Seconds (9.4-12.1) H 12/24/16 05:00 - VTE Documentation of Mechanical Device: Graduated compression elastic hosiery Consult Discharge Plan - Plan Referrals: NO,PCP [Primary Care Provider] - (Neo Durbin MD Icer Hand 02/02/17 at 9:15 Himanshu Caraballo MD [facility] 04/15/17 at 8:30 )
[2017-01-05] MEDS: Fenofibrate 54 MG TABLET PO SCH (17:30)
[2017-01-05] MEDS: Mirtazapine 15 MG TABLET PO SCH (22:08)
[2017-01-06] MEDS: Levothyroxine 25 MCG TABLET PO SCH (05:40)
[2017-01-06] MEDS: *HR* Amiodarone 200 MG TABLET PO SCH (09:20)
[2017-01-06] MEDS: Aspirin Enteric Coated 81 MG Tablet PO SCH (09:20)
[2017-01-06] MEDS: Famotidine 20 MG TABLET PO SCH ×2 (09:20→20:05)
[2017-01-06] MEDS: Sennosides/Docusate Sodium TABLET PO SCH ×2 (09:21→20:05)
[2017-01-06] MEDS: Fenofibrate 54 MG TABLET PO SCH (17:23)
[2017-01-06] MEDS: Mirtazapine 15 MG TABLET PO SCH (20:05)
--- NOTE | 2017-01-06 22:40 | Internal Med Progress Note ---
Date of Encounter: 01/06/17 Time of Encounter: 22:38 - Assessment and plan (1) CVA (cerebrovascular accident due to intracerebral hemorrhage) Current Visit: Yes Status: Acute Assessment and plan: Patient is working with the staff at showing excellent progress. Patient progressing still struggling with right-sided awareness with gait. We will continue to work on balance, transfer, safety.. otes Qualifiers: Intracerebral hemorrhage etiology: nontraumatic Cerebral hemorrhage location: unspecified cerebral location Laterality: left Qualified Code(s): I61.9 - Nontraumatic intracerebral hemorrhage, unspecified - Subjective Interval history: No new voiced complaint. No shortness of breath. No chest pain. He states he feels better. - Constitutional Vitals: Temp Pulse Resp BP Pulse Ox 97.9 F 80 15 118/71 95 01/06/17 18:30 01/06/17 18:30 01/06/17 18:30 01/06/17 18:30 01/06/17 18:30 General appearance: Present: A&O X 2, no acute distress - Respiratory Respiratory exam: Present: CTAB. Absent: accessory muscle use, rales, rhonchi, wheezes - Cardiovascular Cardiovascular exam: Present: RRR, +S1, +S2. Absent: diastolic murmur, gallop, rubs, systolic murmur - GI/Abdominal GI/Abdominal exam: Present: normal bowel sounds, soft, no peritoneal signs. Absent: distended, tenderness Internal Medicine: Result - Labs CBC & Chem 7: 01/05/17 04:45 01/05/17 04:45 - ABG Interpretation ABG results: PT/INR, D-dimer PT 12.2 Seconds (9.4-12.1) H 12/24/16 05:00 - VTE Documentation of Mechanical Device: Graduated compression elastic hosiery Consult Discharge Plan - Plan Referrals: NO,PCP [Primary Care Provider] - (Neo Durbin MD Bass Mechanism Maker 02/02/17 at 9:15 Himanshu Caraballo MD [facility] 04/15/17 at 8:30 )
[2017-01-07] MEDS: Levothyroxine 25 MCG TABLET PO SCH (06:29)
[2017-01-07] MEDS: Sennosides/Docusate Sodium TABLET PO SCH ×2 (08:48→20:21)
[2017-01-07] MEDS: Aspirin Enteric Coated 81 MG Tablet PO SCH (08:48)
[2017-01-07] MEDS: Famotidine 20 MG TABLET PO SCH ×2 (08:48→20:21)
[2017-01-07] MEDS: *HR* Amiodarone 200 MG TABLET PO SCH (08:48)
--- NOTE | 2017-01-07 15:56 | Internal Med Progress Note ---
Date of Encounter: 01/07/17 Time of Encounter: 15:00 - Assessment and plan (1) CVA (cerebrovascular accident due to intracerebral hemorrhage) Current Visit: Yes Status: Acute Assessment and plan: Ted is much improved since his admission here. Qualifiers: Intracerebral hemorrhage etiology: nontraumatic Cerebral hemorrhage location: unspecified cerebral location Laterality: left Qualified Code(s): I61.9 - Nontraumatic intracerebral hemorrhage, unspecified - Time Spent With Patient less than 15 minutes - Subjective Interval history: The patient is continuing to improve and denies needing anything in doing okay and eating his meals - Constitutional Vitals: Temp Pulse Resp BP Pulse Ox 98.6 F 63 18 101/64 96 01/07/17 07:51 01/07/17 07:51 01/07/17 07:51 01/07/17 07:51 01/07/17 07:51 General appearance: Present: A&O X 2, no acute distress - Head Head exam: Present: atraumatic, normal inspection, normocephalic - Neck Neck exam general surgery: Present: supple, trachea midline. Absent: lymphadenopathy - Respiratory Respiratory exam: Present: CTAB. Absent: accessory muscle use, rales, rhonchi, wheezes - Cardiovascular Cardiovascular exam: Present: RRR, +S1, +S2. Absent: diastolic murmur, gallop, rubs, systolic murmur - GI/Abdominal GI/Abdominal exam: Present: normal bowel sounds, soft, no peritoneal signs. Absent: distended, tenderness Internal Medicine: Result - Labs CBC & Chem 7: 01/05/17 04:45 01/05/17 04:45 Labs: Lab looks okay some elevation chronic of the creatinine.. - ABG Interpretation ABG results: PT/INR, D-dimer PT 12.2 Seconds (9.4-12.1) H 12/24/16 05:00 - VTE Documentation of Mechanical Device: Graduated compression elastic hosiery Consult Discharge Plan - Plan Referrals: NO,PCP [Primary Care Provider] - (Neo Durbin MD Mover 02/02/17 at 9:15 Himanshu Caraballo MD [facility], [place] 04/15/17 at 8:30 )
[2017-01-07] MEDS: Fenofibrate 54 MG TABLET PO SCH (18:24)
[2017-01-07] MEDS: Mirtazapine 15 MG TABLET PO SCH (20:21)
[2017-01-08] MEDS: Levothyroxine 25 MCG TABLET PO SCH (05:31)
[2017-01-08] MEDS: Aspirin Enteric Coated 81 MG Tablet PO SCH (09:06)
[2017-01-08] MEDS: Sennosides/Docusate Sodium TABLET PO SCH ×2 (09:06→20:36)
[2017-01-08] MEDS: Famotidine 20 MG TABLET PO SCH ×2 (09:06→20:36)
[2017-01-08] MEDS: *HR* Amiodarone 200 MG TABLET PO SCH (09:07)
--- NOTE | 2017-01-08 14:10 | Internal Med Progress Note ---
Date of Encounter: 01/08/17 Time of Encounter: 14:00 - Assessment and plan (1) CVA (cerebrovascular accident due to intracerebral hemorrhage) Current Visit: Yes Status: Acute Assessment and plan: Patient had a CVA but is been progressing nicely especially this week Qualifiers: Intracerebral hemorrhage etiology: nontraumatic Cerebral hemorrhage location: unspecified cerebral location Laterality: left Qualified Code(s): I61.9 - Nontraumatic intracerebral hemorrhage, unspecified - Time Spent With Patient less than 15 minutes - Subjective Interval history: The patient is continuing to improve and denies needing anything in doing okay and eating his meals. Patient ambulated the length of the black was standby. In his cognitive continues to improve as he knew where his room because. - Constitutional Vitals: Temp Pulse Resp BP Pulse Ox 98.3 F 60 18 99/65 97 01/08/17 07:00 01/08/17 07:00 01/08/17 07:00 01/08/17 07:00 01/08/17 07:00 General appearance: Present: A&O X 2, no acute distress - Head Head exam: Present: atraumatic, normocephalic - Neck Neck exam general surgery: Present: supple, trachea midline. Absent: lymphadenopathy - Respiratory Respiratory exam: Present: CTAB. Absent: accessory muscle use, rales, rhonchi, wheezes - Cardiovascular Cardiovascular exam: Present: RRR, +S1, +S2. Absent: diastolic murmur, gallop, rubs, systolic murmur Internal Medicine: Result - Labs CBC & Chem 7: 01/05/17 04:45 01/05/17 04:45 Labs: Lab is looking good - ABG Interpretation ABG results: PT/INR, D-dimer PT 12.2 Seconds (9.4-12.1) H 12/24/16 05:00 - VTE Documentation of Mechanical Device: Graduated compression elastic hosiery Consult Discharge Plan - Plan Referrals: NO,PCP [Primary Care Provider] - (Neo Durbin MD Artist Agent 02/02/17 at 9:15 Himanshu Caraballo MD [facility], [place], [facility] 04/15/17 at 8:30 )
[2017-01-08] MEDS: Fenofibrate 54 MG TABLET PO SCH (17:29)
[2017-01-08] MEDS: Mirtazapine 15 MG TABLET PO SCH (20:36)
[2017-01-09] MEDS: Levothyroxine 25 MCG TABLET PO SCH (06:07)
[2017-01-09] MEDS: Aspirin Enteric Coated 81 MG Tablet PO SCH (08:14)
[2017-01-09] MEDS: Sennosides/Docusate Sodium TABLET PO SCH ×2 (08:14→20:16)
[2017-01-09] MEDS: Famotidine 20 MG TABLET PO SCH ×2 (08:14→20:17)
[2017-01-09] MEDS: *HR* Amiodarone 200 MG TABLET PO SCH (08:15)
[2017-01-09] MEDS: Fenofibrate 54 MG TABLET PO SCH (17:31)
[2017-01-09] MEDS: Mirtazapine 15 MG TABLET PO SCH (20:17)
[2017-01-10] MEDS: Levothyroxine 25 MCG TABLET PO SCH (05:18)
[2017-01-10] MEDS: Aspirin Enteric Coated 81 MG Tablet PO SCH (09:18)
[2017-01-10] MEDS: *HR* Amiodarone 200 MG TABLET PO SCH (09:18)
[2017-01-10] MEDS: Sennosides/Docusate Sodium TABLET PO SCH ×2 (09:18→21:18)
[2017-01-10] MEDS: Famotidine 20 MG TABLET PO SCH (09:18)
--- NOTE | 2017-01-10 13:22 | Internal Med Progress Note ---
Date of Encounter: 01/10/17 Time of Encounter: 13:00 - Assessment and plan (1) CVA (cerebrovascular accident due to intracerebral hemorrhage) Current Visit: Yes Status: Acute Assessment and plan: Patient had intra-cerebral hemorrhage. He is improving daily Qualifiers: Intracerebral hemorrhage etiology: nontraumatic Cerebral hemorrhage location: unspecified cerebral location Laterality: left Qualified Code(s): I61.9 - Nontraumatic intracerebral hemorrhage, unspecified - Time Spent With Patient less than 15 minutes - Subjective Interval history: The patient is continuing to improve and denies needing anything in doing okay and eating his meals. Patient ambulated the length of the black was standby. In his cognitive continues to improve as he knew where his room because. Continues to improve on a daily basis. - Constitutional Vitals: Temp Pulse Resp BP Pulse Ox 97.9 F 70 16 135/75 96 01/10/17 07:00 01/10/17 07:00 01/10/17 07:00 01/10/17 07:00 01/10/17 07:00 General appearance: Present: A&O X 2, no acute distress - Head Head exam: Present: atraumatic, normal inspection, normocephalic - Neck Neck exam general surgery: Present: supple, trachea midline. Absent: lymphadenopathy - Respiratory Respiratory exam: Present: CTAB. Absent: accessory muscle use, rales, rhonchi, wheezes - Cardiovascular Cardiovascular exam: Present: RRR, +S1, +S2. Absent: diastolic murmur, gallop, rubs, systolic murmur Internal Medicine: Result - Labs CBC & Chem 7: 01/05/17 04:45 01/05/17 04:45 Labs: Except for slight increase in his creatinine lab is stable - ABG Interpretation ABG results: PT/INR, D-dimer PT 12.2 Seconds (9.4-12.1) H 12/24/16 05:00 - VTE Documentation of Mechanical Device: Graduated compression elastic hosiery Consult Discharge Plan - Plan Referrals: NO,PCP [Primary Care Provider] - (Neo Durbin MD Bird Raiser 02/02/17 at 9:15 Himanshu Caraballo MD [facility] 04/15/17 at 8:30 )
[2017-01-10] MEDS: Fenofibrate 54 MG TABLET PO SCH (17:34)
[2017-01-10] MEDS: Mirtazapine 15 MG TABLET PO SCH (21:18)
[2017-01-11] MEDS: Levothyroxine 25 MCG TABLET PO SCH (05:59)
[2017-01-11] MEDS: Sennosides/Docusate Sodium TABLET PO SCH ×2 (08:44→21:42)
[2017-01-11] MEDS: Aspirin Enteric Coated 81 MG Tablet PO SCH (08:44)
[2017-01-11] MEDS: *HR* Amiodarone 200 MG TABLET PO SCH (08:45)
[2017-01-11] MEDS: Famotidine 20 MG TABLET PO SCH (08:45)
--- NOTE | 2017-01-11 12:35 | Internal Med Progress Note ---
Date of Encounter: 01/11/17 Time of Encounter: 12:00 - Assessment and plan (1) CVA (cerebrovascular accident due to intracerebral hemorrhage) Current Visit: Yes Status: Acute Assessment and plan: Showing progress or daily basis. Qualifiers: Intracerebral hemorrhage etiology: nontraumatic Cerebral hemorrhage location: unspecified cerebral location Laterality: left Qualified Code(s): I61.9 - Nontraumatic intracerebral hemorrhage, unspecified - Time Spent With Patient less than 15 minutes - Subjective Interval history: The patient is continuing to improve and denies needing anything in doing okay and eating his meals. Patient ambulated the length of the black was standby. In his cognitive continues to improve as he knew where his room because. Continues to improve on a daily basis. - Constitutional Vitals: Temp Pulse Resp BP Pulse Ox 98.5 F 62 16 105/58 96 01/11/17 07:00 01/11/17 07:00 01/11/17 07:00 01/11/17 07:00 01/11/17 07:00 General appearance: Present: A&O X 2, no acute distress - Head Head exam: Present: atraumatic, normal inspection, normocephalic - Neck Neck exam general surgery: Present: supple, trachea midline. Absent: lymphadenopathy - Respiratory Respiratory exam: Present: CTAB. Absent: accessory muscle use, rales, rhonchi, wheezes - Cardiovascular Cardiovascular exam: Present: RRR, +S1, +S2. Absent: diastolic murmur, gallop, rubs, systolic murmur - GI/Abdominal GI/Abdominal exam: Present: normal bowel sounds, soft, no peritoneal signs. Absent: distended, tenderness Internal Medicine: Result - Labs CBC & Chem 7: 01/05/17 04:45 01/05/17 04:45 Labs: Labs okay - ABG Interpretation ABG results: PT/INR, D-dimer PT 12.2 Seconds (9.4-12.1) H 12/24/16 05:00 - VTE Documentation of Mechanical Device: Graduated compression elastic hosiery Consult Discharge Plan - Plan Referrals: NO,PCP [Primary Care Provider] - (Neo Durbin MD Land Degradation Analyst 02/02/17 at 9:15 Himanshu Caraballo MD [facility] 04/15/17 at 8:30 )
[2017-01-11] MEDS: Fenofibrate 54 MG TABLET PO SCH (17:44)
[2017-01-11] MEDS: Mirtazapine 15 MG TABLET PO SCH (21:41)
[2017-01-12 05:21] LABS: Basophils # 0.1 K/mcL (0.0-0.2); Eosinophils # 0.2 K/mcL (0.0-0.6); Eosinophils % 3.7 %; Hematocrit 40.3 % (37.5-50.1); Hemoglobin 13.3 g/dL (12.9-16.9); Immature Granulocytes % 0.5 % (0-4); Lymphocytes # 2.7 K/mcL (0.6-4.6); Lymphocytes % 44.2 %; Mean Corpuscular Hemoglobin 29.9 pg (28.0-33.3); Mean Corpuscular Volume 90.6 fL (83.0-100.0); Mean Platelet Volume 9.8 fL (9.4-12.4); Monocytes # 0.5 K/mcL (0.0-1.3); Neutrophils # 2.6 K/mcL (1.6-8.9); Platelet Count 206 K/mcL (140-400); Red Blood Count 4.45 M/mcL (4.19-5.50); Red Cell Distribution Width 13.2 % (11.5-14.5); Segmented Neutrophils % 42.6 %
[2017-01-12 05:32] LABS: BUN/Creatinine Ratio 12 (6-26); Blood Urea Nitrogen 15 mg/dL (8-26); Calcium 9.3 mg/dL (8.6-10.8); Carbon Dioxide 24 mEq/L (19-29); Chloride 108 mEq/L (98-109); Glucose 94 mg/dL (70-99); Osmolality,Calculated 295 (280-300); Sodium 142 mEq/L (136-145); eGFR For African Americans > 60 (> 60); eGFR For Non-African Americans 56 (> 60)
[2017-01-12] MEDS: Levothyroxine 25 MCG TABLET PO SCH (05:56)
[2017-01-12] MEDS: Sennosides/Docusate Sodium TABLET PO SCH ×2 (08:28→19:54)
[2017-01-12] MEDS: *HR* Amiodarone 200 MG TABLET PO SCH (08:29)
[2017-01-12] MEDS: Famotidine 20 MG TABLET PO SCH (08:30)
[2017-01-12] MEDS: Aspirin Enteric Coated 81 MG Tablet PO SCH (08:30)
--- NOTE | 2017-01-12 15:27 | Internal Med Progress Note ---
Date of Encounter: 01/12/17 Time of Encounter: 15:00 - Assessment and plan (1) CVA (cerebrovascular accident due to intracerebral hemorrhage) Current Visit: Yes Status: Acute Assessment and plan: Ted had an intracerebral bleed. He is physically . Some cognitive issues remain. some problems with his right side neglect . Qualifiers: Intracerebral hemorrhage etiology: nontraumatic Cerebral hemorrhage location: unspecified cerebral location Laterality: left Qualified Code(s): I61.9 - Nontraumatic intracerebral hemorrhage, unspecified - Time Spent With Patient less than 15 minutes - Subjective Interval history: Patient is physically ambulating better etc. But still having trouble with word finding. He was unable to call my name and unable to tell us which town lived in - Constitutional Vitals: Temp Pulse Resp BP Pulse Ox 98.2 F 60 17 94/55 95 01/12/17 06:34 01/12/17 06:34 01/12/17 06:34 01/12/17 06:34 01/12/17 06:34 General appearance: Present: A&O X 2, no acute distress - Head Head exam: Present: atraumatic, normal inspection, normocephalic - Neck Neck exam general surgery: Present: supple, trachea midline. Absent: lymphadenopathy - Respiratory Respiratory exam: Present: CTAB. Absent: accessory muscle use, rales, rhonchi, wheezes - Cardiovascular Cardiovascular exam: Present: RRR, +S1, +S2. Absent: diastolic murmur, gallop, rubs, systolic murmur Internal Medicine: Result - Labs CBC & Chem 7: 01/12/17 04:40 01/12/17 04:40 Labs: Short CBC 01/12/17 Range/Units 04:40 WBC 6.2 (4.3-11.1) K/mcL Hgb 13.3 (12.9-16.9) g/dL Hct 40.3 (37.5-50.1) % Plt Count 206 (140-400) K/mcL Neutrophils # 2.6 (1.6-8.9) K/mcL BMP 01/12/17 04:40 Sodium 142 Potassium 4.0 Chloride 108 Carbon Dioxide 24 BUN 15 Creatinine 1.29 H Glucose 94 Calcium 9.3 Lab is stable - ABG Interpretation ABG results: PT/INR, D-dimer PT 12.2 Seconds (9.4-12.1) H 12/24/16 05:00 - VTE Documentation of Mechanical Device: Graduated compression elastic hosiery Consult Discharge Plan - Plan Referrals: NO,PCP [Primary Care Provider] - (Neo Durbin MD Photography Sales Associate 02/02/17 at 9:[address] [facility] 04/15/17 at 8:30 )
[2017-01-12] MEDS: Fenofibrate 54 MG TABLET PO SCH (17:06)
[2017-01-12] MEDS: Mirtazapine 15 MG TABLET PO SCH (19:55)
[2017-01-13] MEDS: Levothyroxine 25 MCG TABLET PO SCH (04:56)
[2017-01-13] MEDS: Famotidine 20 MG TABLET PO SCH (09:43)
[2017-01-13] MEDS: *HR* Amiodarone 200 MG TABLET PO SCH (09:43)
[2017-01-13] MEDS: Aspirin Enteric Coated 81 MG Tablet PO SCH (09:43)
[2017-01-13] MEDS: Sennosides/Docusate Sodium TABLET PO SCH ×2 (09:44→19:47)
--- NOTE | 2017-01-13 12:16 | Internal Med Progress Note ---
Date of Encounter: 01/13/17 Time of Encounter: 12:00 - Assessment and plan (1) CVA (cerebrovascular accident due to intracerebral hemorrhage) Current Visit: Yes Status: Acute Assessment and plan: Ratio and CVAs working with PT OT TR and speech Qualifiers: Intracerebral hemorrhage etiology: nontraumatic Cerebral hemorrhage location: unspecified cerebral location Laterality: left Qualified Code(s): I61.9 - Nontraumatic intracerebral hemorrhage, unspecified - Subjective Interval history: Patient is physically ambulating better etc. But still having trouble with word finding. He was unable to call my name and unable to tell us which town lived in - Constitutional Vitals: Temp Pulse Resp BP Pulse Ox 98.1 F 71 16 118/75 94 L 01/13/17 07:00 01/13/17 07:00 01/13/17 07:00 01/13/17 07:00 01/13/17 07:00 General appearance: Present: A&O X 2, no acute distress - Head Head exam: Present: atraumatic, normal inspection, normocephalic - Neck Neck exam general surgery: Present: supple, trachea midline. Absent: lymphadenopathy - Cardiovascular Cardiovascular exam: Present: RRR, +S1, +S2. Absent: diastolic murmur, gallop, rubs, systolic murmur - GI/Abdominal GI/Abdominal exam: Present: normal bowel sounds, soft, no peritoneal signs. Absent: distended, tenderness Internal Medicine: Result - Labs CBC & Chem 7: 01/12/17 04:40 01/12/17 04:40 Labs: Lab is stable - ABG Interpretation ABG results: PT/INR, D-dimer PT 12.2 Seconds (9.4-12.1) H 12/24/16 05:00 - VTE Documentation of Mechanical Device: Graduated compression elastic hosiery Consult Discharge Plan - Plan Referrals: NO,PCP [Primary Care Provider] - (Neo Durbin MD Optician Apprentice 02/02/17 at 9:15 Himanshu Caraballo MD [facility] 04/15/17 at 8:30 )
[2017-01-13] MEDS: Fenofibrate 54 MG TABLET PO SCH (17:20)
[2017-01-13] MEDS: Mirtazapine 15 MG TABLET PO SCH (19:46)
[2017-01-14] MEDS: Levothyroxine 25 MCG TABLET PO SCH (05:26)
[2017-01-14] MEDS: Aspirin Enteric Coated 81 MG Tablet PO SCH (08:24)
[2017-01-14] MEDS: *HR* Amiodarone 200 MG TABLET PO SCH (08:24)
[2017-01-14] MEDS: Sennosides/Docusate Sodium TABLET PO SCH ×2 (08:25→22:07)
[2017-01-14] MEDS: Famotidine 20 MG TABLET PO SCH (08:25)
--- NOTE | 2017-01-14 12:41 | Physical Med Progress Note ---
Date of Encounter: 01/14/17 Time of Encounter: 12:31 Assessment and Plan (1) CVA (cerebrovascular accident due to intracerebral hemorrhage) Current Visit: Yes Status: Acute Qualifiers: Intracerebral hemorrhage etiology: nontraumatic Cerebral hemorrhage location: unspecified cerebral location Laterality: left Qualified Code(s): I61.9 - Nontraumatic intracerebral hemorrhage, unspecified Physical Medicine-PN: Subj Interval history: PMR PCC note Patient continues to have severe aphasia. He has made some progress with matching pictures. He is SBA/CGA for ambulation with support on the right side. He is easily distracted while walking. Poor right side body awareness. His aphasia is a significant barrier to therapies. Patient able to get up from floor with SBA. He has made improvement with his ADLs. He is able to select appropriate clothing. Continue intensive PT/OT/ST. Family meeting planned. Family planning on taking patient home-will have them come in for education. FLORENCIO 01/28/17. - Constitutional Vitals: Vital Signs Temp Pulse Resp BP Pulse Ox 01/14/17 07:28 97.9 F 62 18 128/71 95 01/13/17 19:00 98.6 F 69 12 103/64 94 L Intake and Output 01/13/17 01/14/17 01/14/17 23:59 07:59 15:59 Intake Total 60 / 60 480 / 480 Balance 60 / 60 480 / 480 Intake: Oral 60 / 60 480 / 480 Other: Meal Dinner Breakfast Percent of Meal Consumed 90% 100% # Voids 1 1 1 Physical Medicine-PN: Obj Data - Labs CBC & Chem 7: 01/12/17 04:40 01/12/17 04:40 - ABG Interpretation ABG results: PT/INR, D-dimer PT 12.2 Seconds (9.4-12.1) H 12/24/16 05:00 - VTE Documentation of Mechanical Device: Graduated compression elastic hosiery Consult Discharge Plan - Plan Referrals: NO,PCP [Primary Care Provider] - (Neo Durbin MD Server Manager 02/02/17 at 9:15 Himanshu Caraballo MD [facility] 04/15/17 at 8:30 )
--- NOTE | 2017-01-14 13:42 | Internal Med Progress Note ---
Date of Encounter: 01/14/17 Time of Encounter: 14:00 - Assessment and plan (1) CVA (cerebrovascular accident due to intracerebral hemorrhage) Current Visit: Yes Status: Acute Assessment and plan: Patient is being treated for intercerebral hemorrhage. Qualifiers: Intracerebral hemorrhage etiology: nontraumatic Cerebral hemorrhage location: unspecified cerebral location Laterality: left Qualified Code(s): I61.9 - Nontraumatic intracerebral hemorrhage, unspecified - Time Spent With Patient less than 15 minutes - Subjective Interval history: Patient is physically ambulating better etc. But still having trouble with word finding. He was unable to call my name and unable to tell us which town lived in. See PT OT and TR notes. Speech is still treating patient to help with identification of objects. There is right-sided neglect. - Constitutional Vitals: Temp Pulse Resp BP Pulse Ox 97.9 F 62 18 128/71 95 01/14/17 07:28 01/14/17 07:28 01/14/17 07:28 01/14/17 07:28 01/14/17 07:28 General appearance: Present: A&O X 2, no acute distress - Head Head exam: Present: atraumatic, normal inspection, normocephalic - Neck Neck exam general surgery: Present: supple, trachea midline. Absent: lymphadenopathy - Respiratory Respiratory exam: Present: CTAB. Absent: accessory muscle use, rales, rhonchi, wheezes - Cardiovascular Cardiovascular exam: Present: RRR, +S1, +S2. Absent: diastolic murmur, gallop, rubs, systolic murmur - GI/Abdominal GI/Abdominal exam: Present: normal bowel sounds, soft, no peritoneal signs. Absent: distended, tenderness Internal Medicine: Result - Labs CBC & Chem 7: 01/12/17 04:40 01/12/17 04:40 Labs: Lab is perfectly fine - ABG Interpretation ABG results: PT/INR, D-dimer PT 12.2 Seconds (9.4-12.1) H 12/24/16 05:00 - VTE Documentation of Mechanical Device: Graduated compression elastic hosiery Consult Discharge Plan - Plan Referrals: NO,PCP [Primary Care Provider] - (Neo Durbin MD Software Development Analyst 02/02/17 at 9:15 Himanshu Caraballo MD [facility] 04/15/17 at 8:30 )
[2017-01-14] MEDS: Fenofibrate 54 MG TABLET PO SCH (17:29)
[2017-01-14] MEDS: Mirtazapine 15 MG TABLET PO SCH (21:59)
[2017-01-15] MEDS: Levothyroxine 25 MCG TABLET PO SCH (05:40)
[2017-01-15] MEDS: Sennosides/Docusate Sodium TABLET PO SCH ×2 (10:23→21:10)
[2017-01-15] MEDS: *HR* Amiodarone 200 MG TABLET PO SCH (10:23)
[2017-01-15] MEDS: Aspirin Enteric Coated 81 MG Tablet PO SCH (10:23)
[2017-01-15] MEDS: Famotidine 20 MG TABLET PO SCH (10:24)
--- NOTE | 2017-01-15 15:10 | Internal Med Progress Note ---
Date of Encounter: 01/14/17 Time of Encounter: 15:00 - Assessment and plan (1) CVA (cerebrovascular accident due to intracerebral hemorrhage) Current Visit: Yes Status: Acute Assessment and plan: Luis improving and he has improved significantly since his first day of admission. He had intracerebral hemorrhage Qualifiers: Intracerebral hemorrhage etiology: nontraumatic Cerebral hemorrhage location: unspecified cerebral location Laterality: left Qualified Code(s): I61.9 - Nontraumatic intracerebral hemorrhage, unspecified - Time Spent With Patient less than 15 minutes - Subjective Interval history: Ted still working with PT OT TR and speech. He is pleasant and cooperative. Is making progress. There is still some cognitive issues. - Constitutional Vitals: Temp Pulse Resp BP Pulse Ox 97.6 F 65 18 100/60 95 01/15/17 07:08 01/15/17 07:08 01/15/17 07:08 01/15/17 07:08 01/15/17 07:08 General appearance: Present: A&O X 2, no acute distress - Head Head exam: Present: atraumatic, normal inspection, normocephalic - Neck Neck exam general surgery: Present: supple, trachea midline. Absent: lymphadenopathy - Respiratory Respiratory exam: Present: CTAB. Absent: accessory muscle use, rales, rhonchi, wheezes - Cardiovascular Cardiovascular exam: Present: RRR, +S1, +S2. Absent: diastolic murmur, gallop, rubs, systolic murmur - GI/Abdominal GI/Abdominal exam: Present: normal bowel sounds, soft, no peritoneal signs. Absent: distended, tenderness Internal Medicine: Result - Labs CBC & Chem 7: 01/12/17 04:40 01/12/17 04:40 Labs: Lab is stable - ABG Interpretation ABG results: PT/INR, D-dimer PT 12.2 Seconds (9.4-12.1) H 12/24/16 05:00 - VTE Documentation of Mechanical Device: Graduated compression elastic hosiery Consult Discharge Plan - Plan Referrals: NO,PCP [Primary Care Provider] - (Neo Durbin MD Pharmacy Buyer 02/02/17 at 9:15 Himanshu Caraballo MD [facility] 04/15/17 at 8:30 )
[2017-01-15] MEDS: Fenofibrate 54 MG TABLET PO SCH (18:41)
[2017-01-15] MEDS: Mirtazapine 15 MG TABLET PO SCH (21:11)
[2017-01-16] MEDS: Levothyroxine 25 MCG TABLET PO SCH (06:25)
[2017-01-16] MEDS: Famotidine 20 MG TABLET PO SCH (10:18)
[2017-01-16] MEDS: Sennosides/Docusate Sodium TABLET PO SCH ×2 (10:19→21:07)
[2017-01-16] MEDS: *HR* Amiodarone 200 MG TABLET PO SCH (10:20)
[2017-01-16] MEDS: Aspirin Enteric Coated 81 MG Tablet PO SCH (10:20)
--- NOTE | 2017-01-16 13:23 | Internal Med Progress Note ---
Date of Encounter: 01/14/17 Time of Encounter: 14:00 - Assessment and plan (1) CVA (cerebrovascular accident due to intracerebral hemorrhage) Current Visit: Yes Status: Acute Assessment and plan: Patient had a CVA which brought him to [place]. Physically he is much improved. Still some word finding conjunctivae issues. Qualifiers: Intracerebral hemorrhage etiology: nontraumatic Cerebral hemorrhage location: unspecified cerebral location Laterality: left Qualified Code(s): I61.9 - Nontraumatic intracerebral hemorrhage, unspecified - Time Spent With Patient less than 15 minutes - Subjective Interval history: Ted still working with PT OT TR and speech. He is pleasant and cooperative. Is making progress. There is still some cognitive issues. Lab is okay - Constitutional Vitals: Temp Pulse Resp BP Pulse Ox 98.5 F 55 16 105/63 96 01/16/17 07:00 01/16/17 07:00 01/16/17 07:00 01/16/17 07:00 01/16/17 07:00 General appearance: Present: A&O X 2, no acute distress - Head Head exam: Present: atraumatic, normal inspection, normocephalic - Neck Neck exam general surgery: Present: supple, trachea midline. Absent: lymphadenopathy - Respiratory Respiratory exam: Present: CTAB. Absent: accessory muscle use, rales, rhonchi, wheezes - Cardiovascular Cardiovascular exam: Present: RRR, +S1, +S2. Absent: diastolic murmur, gallop, rubs, systolic murmur Internal Medicine: Result - Labs CBC & Chem 7: 01/12/17 04:40 01/12/17 04:40 Labs: Lab is stable - ABG Interpretation ABG results: PT/INR, D-dimer PT 12.2 Seconds (9.4-12.1) H 12/24/16 05:00 - VTE Documentation of Mechanical Device: Graduated compression elastic hosiery Consult Discharge Plan - Plan Referrals: NO,PCP [Primary Care Provider] - (Neo Durbin MD Sourcing Specialist 02/02/17 at 9:15 Himanshu Caraballo MD [facility] 04/15/17 at 8:30 )
[2017-01-16] MEDS: Fenofibrate 54 MG TABLET PO SCH (18:39)
[2017-01-16] MEDS: Mirtazapine 15 MG TABLET PO SCH (21:07)
[2017-01-17] MEDS: Levothyroxine 25 MCG TABLET PO SCH (06:41)
[2017-01-17] MEDS: Aspirin Enteric Coated 81 MG Tablet PO SCH (08:58)
[2017-01-17] MEDS: Famotidine 20 MG TABLET PO SCH (08:58)
[2017-01-17] MEDS: Sennosides/Docusate Sodium TABLET PO SCH ×2 (08:58→21:10)
[2017-01-17] MEDS: *HR* Amiodarone 200 MG TABLET PO SCH (08:59)
--- NOTE | 2017-01-17 12:09 | Internal Med Progress Note ---
Date of Encounter: 01/17/17 Time of Encounter: 12:00 - Assessment and plan (1) CVA (cerebrovascular accident due to intracerebral hemorrhage) Current Visit: Yes Status: Acute Assessment and plan: Patient's here for his intracerebral bleed. Very significant progress Qualifiers: Intracerebral hemorrhage etiology: nontraumatic Cerebral hemorrhage location: unspecified cerebral location Laterality: left Qualified Code(s): I61.9 - Nontraumatic intracerebral hemorrhage, unspecified - Time Spent With Patient less than 15 minutes - Subjective Interval history: Ted still working with PT OT TR and speech. He is pleasant and cooperative. Is making progress. There is still some cognitive issues. Lab is okay - Constitutional Vitals: Temp Pulse Resp BP Pulse Ox 97.8 F 57 18 105/67 94 01/17/17 06:50 01/17/17 06:50 01/17/17 06:50 01/17/17 06:50 01/17/17 06:50 General appearance: Present: A&O X 2, no acute distress - Head Head exam: Present: atraumatic, normal inspection, normocephalic - Neck Neck exam general surgery: Present: supple, trachea midline. Absent: lymphadenopathy - Respiratory Respiratory exam: Present: CTAB. Absent: accessory muscle use, rales, rhonchi, wheezes - Cardiovascular Cardiovascular exam: Present: RRR, +S1, +S2. Absent: diastolic murmur, gallop, rubs, systolic murmur Internal Medicine: Result - Labs CBC & Chem 7: 01/12/17 04:40 01/12/17 04:40 Labs: Lab is good little slight increase in creatinine - ABG Interpretation ABG results: PT/INR, D-dimer PT 12.2 Seconds (9.4-12.1) H 12/24/16 05:00 - VTE Documentation of Mechanical Device: Graduated compression elastic hosiery Consult Discharge Plan - Plan Referrals: NO,PCP [Primary Care Provider] - (Neo Durbin MD Portable Track Crew Chief 02/02/17 at 9:15 Himanshu Caraballo MD [facility] 04/15/17 at 8:30 )
[2017-01-17] MEDS: Fenofibrate 54 MG TABLET PO SCH (17:25)
[2017-01-17] MEDS: Mirtazapine 15 MG TABLET PO SCH (21:10)
[2017-01-18] MEDS: Levothyroxine 25 MCG TABLET PO SCH (05:06)
[2017-01-18] MEDS: Famotidine 20 MG TABLET PO SCH (09:32)
[2017-01-18] MEDS: Aspirin Enteric Coated 81 MG Tablet PO SCH (09:33)
[2017-01-18] MEDS: Sennosides/Docusate Sodium TABLET PO SCH ×2 (09:33→19:58)
[2017-01-18] MEDS: *HR* Amiodarone 200 MG TABLET PO SCH (09:33)
[2017-01-18] MEDS: Fenofibrate 54 MG TABLET PO SCH (17:09)
[2017-01-18] MEDS: Mirtazapine 15 MG TABLET PO SCH (20:00)
--- NOTE | 2017-01-18 22:49 | Internal Med Progress Note ---
Date of Encounter: 01/18/17 Time of Encounter: 22:48 - Assessment and plan (1) CVA (cerebrovascular accident due to intracerebral hemorrhage) Current Visit: Yes Status: Acute Assessment and plan: Aphasia slight improvement. Right-sided neglect shows some mild changed. PT OT continued to show improvement. Qualifiers: Intracerebral hemorrhage etiology: nontraumatic Cerebral hemorrhage location: unspecified cerebral location Laterality: left Qualified Code(s): I61.9 - Nontraumatic intracerebral hemorrhage, unspecified - Time Spent With Patient less than 15 minutes - Subjective Interval history: No new voiced complaint. No shortness of breath. No chest pain. He states he feels better. - Constitutional Vitals: Temp Pulse Resp BP Pulse Ox 98.9 F 67 16 95/60 92 01/18/17 19:07 01/18/17 19:07 01/18/17 19:07 01/18/17 19:07 01/18/17 19:07 General appearance: Present: A&O X 2, no acute distress - Neurological Exam Additional comments: Same aphasia. Same right-sided neglect. Internal Medicine: Result - Labs CBC & Chem 7: 01/12/17 04:40 01/12/17 04:40 - ABG Interpretation ABG results: PT/INR, D-dimer PT 12.2 Seconds (9.4-12.1) H 12/24/16 05:00 - VTE Documentation of Mechanical Device: Graduated compression elastic hosiery Consult Discharge Plan - Plan Referrals: NO,PCP [Primary Care Provider] - (Neo Durbin MD Plasterer Rough 02/02/17 at 9:15 Himanshu Caraballo MD [facility] 04/15/17 at 8:30 )
[2017-01-19 05:34] LABS: Basophils # 0.1 K/mcL (0.0-0.2); Eosinophils # 0.3 K/mcL (0.0-0.6); Eosinophils % 4.2 %; Hematocrit 40.5 % (37.5-50.1); Hemoglobin 13.2 g/dL (12.9-16.9); Immature Granulocytes % 0.8 % (0-4); Lymphocytes # 2.5 K/mcL (0.6-4.6); Lymphocytes % 42.3 %; Mean Corpuscular HGB Conc 32.6 g/dL (31.6-35.5); Mean Corpuscular Hemoglobin 29.8 pg (28.0-33.3); Mean Corpuscular Volume 91.4 fL (83.0-100.0); Mean Platelet Volume 9.7 fL (9.4-12.4); Monocytes # 0.5 K/mcL (0.0-1.3); Monocytes % 8.1 %; Neutrophils # 2.6 K/mcL (1.6-8.9); Platelet Count 201 K/mcL (140-400); Red Blood Count 4.43 M/mcL (4.19-5.50); Red Cell Distribution Width 13.4 % (11.5-14.5); Segmented Neutrophils % 43.6 %
[2017-01-19] MEDS: Levothyroxine 25 MCG TABLET PO SCH (05:48)
[2017-01-19 05:49] LABS: Potassium 4.3 mEq/L (3.5-4.5)
[2017-01-19] MEDS: Sennosides/Docusate Sodium TABLET PO SCH ×2 (10:02→20:43)
[2017-01-19] MEDS: Famotidine 20 MG TABLET PO SCH (10:02)
[2017-01-19] MEDS: *HR* Amiodarone 200 MG TABLET PO SCH (10:02)
[2017-01-19] MEDS: Aspirin Enteric Coated 81 MG Tablet PO SCH (10:02)
--- NOTE | 2017-01-19 12:09 | Internal Med Progress Note ---
Date of Encounter: 01/19/17 Time of Encounter: 12:00 - Assessment and plan (1) CVA (cerebrovascular accident due to intracerebral hemorrhage) Current Visit: Yes Status: Acute Assessment and plan: She is here for CVA was made very nice progress Qualifiers: Intracerebral hemorrhage etiology: nontraumatic Cerebral hemorrhage location: unspecified cerebral location Laterality: left Qualified Code(s): I61.9 - Nontraumatic intracerebral hemorrhage, unspecified - Subjective Interval history: Ted still working with PT OT TR and speech. He is pleasant and cooperative. Is making progress. There are still some cognitive issues. Lab is okay - Constitutional Vitals: Temp Pulse Resp BP Pulse Ox 70 F L 70 18 106/70 96 01/19/17 07:00 01/19/17 07:00 01/19/17 07:00 01/19/17 07:00 01/19/17 07:00 General appearance: Present: A&O X 2, no acute distress - Head Head exam: Present: atraumatic, normal inspection, normocephalic - Neck Neck exam general surgery: Present: supple, trachea midline. Absent: lymphadenopathy - Respiratory Respiratory exam: Present: CTAB. Absent: accessory muscle use, rales, rhonchi, wheezes - Cardiovascular Cardiovascular exam: Present: RRR, +S1, +S2. Absent: diastolic murmur, gallop, rubs, systolic murmur - GI/Abdominal GI/Abdominal exam: Present: normal bowel sounds, soft, no peritoneal signs. Absent: distended, tenderness Internal Medicine: Result - Labs CBC & Chem 7: 01/19/17 05:10 01/19/17 05:10 Labs: Short CBC 01/19/17 Range/Units 05:10 WBC 5.9 (4.3-11.1) K/mcL Hgb 13.2 (12.9-16.9) g/dL Hct 40.5 (37.5-50.1) % Plt Count 201 (140-400) K/mcL Neutrophils # 2.6 (1.6-8.9) K/mcL BMP 01/19/17 05:10 Sodium 144 Potassium 4.3 Chloride 109 Carbon Dioxide 27 BUN 21 Creatinine 1.44 H Glucose 97 Calcium 9.0 Lab is stable - ABG Interpretation ABG results: PT/INR, D-dimer PT 12.2 Seconds (9.4-12.1) H 12/24/16 05:00 - VTE Documentation of Mechanical Device: Graduated compression elastic hosiery Consult Discharge Plan - Plan Referrals: NO,PCP [Primary Care Provider] - (Neo Durbin MD Accounts Payable Bookkeeper 02/02/17 at 9:15 Himanshu Caraballo MD [facility] 04/15/17 at 8:30 )
[2017-01-19] MEDS: Fenofibrate 54 MG TABLET PO SCH (17:51)
[2017-01-19] MEDS: Mirtazapine 15 MG TABLET PO SCH (20:44)
[2017-01-20] MEDS: Levothyroxine 25 MCG TABLET PO SCH (06:23)
[2017-01-20] MEDS: Famotidine 20 MG TABLET PO SCH (09:45)
[2017-01-20] MEDS: Sennosides/Docusate Sodium TABLET PO SCH ×2 (09:45→19:41)
[2017-01-20] MEDS: *HR* Amiodarone 200 MG TABLET PO SCH (09:45)
[2017-01-20] MEDS: Aspirin Enteric Coated 81 MG Tablet PO SCH (09:45)
--- NOTE | 2017-01-20 13:27 | Internal Med Progress Note ---
Date of Encounter: 01/20/17 Time of Encounter: 13:00 - Assessment and plan (1) CVA (cerebrovascular accident due to intracerebral hemorrhage) Current Visit: Yes Status: Acute Assessment and plan: Patient is here due to recent intracerebral bleed with evidence of stroke Qualifiers: Intracerebral hemorrhage etiology: nontraumatic Cerebral hemorrhage location: unspecified cerebral location Laterality: left Qualified Code(s): I61.9 - Nontraumatic intracerebral hemorrhage, unspecified - Time Spent With Patient less than 15 minutes - Subjective Interval history: Ted still working with PT OT TR and speech. He is pleasant and cooperative. Is making progress. There are still some cognitive issues. Lab is okay - Constitutional Vitals: Temp Pulse Resp BP Pulse Ox 97.9 F 65 18 119/76 94 01/20/17 07:21 01/20/17 07:21 01/20/17 07:21 01/20/17 07:21 01/20/17 07:21 General appearance: Present: A&O X 2, no acute distress - Head Head exam: Present: atraumatic, normal inspection, normocephalic - Neck Neck exam general surgery: Present: supple, trachea midline. Absent: lymphadenopathy - Respiratory Respiratory exam: Present: CTAB. Absent: accessory muscle use, rales, rhonchi, wheezes - Cardiovascular Cardiovascular exam: Present: RRR, +S1, +S2. Absent: diastolic murmur, gallop, rubs, systolic murmur - GI/Abdominal GI/Abdominal exam: Present: normal bowel sounds, soft, no peritoneal signs. Absent: distended, tenderness Internal Medicine: Result - Labs CBC & Chem 7: 01/19/17 05:10 01/19/17 05:10 Labs: Lab is stable - ABG Interpretation ABG results: PT/INR, D-dimer PT 12.2 Seconds (9.4-12.1) H 12/24/16 05:00 - VTE Documentation of Mechanical Device: Graduated compression elastic hosiery Consult Discharge Plan - Plan Referrals: NO,PCP [Primary Care Provider] - (Neo Durbin MD Insurance Sales Associate 02/02/17 at 9:15 Himanshu Caraballo MD [facility] 04/15/17 at 8:30 )
[2017-01-20] MEDS: Fenofibrate 54 MG TABLET PO SCH (18:33)
[2017-01-20] MEDS: Mirtazapine 15 MG TABLET PO SCH (19:41)
[2017-01-21] MEDS: Levothyroxine 25 MCG TABLET PO SCH (06:06)
[2017-01-21] MEDS: *HR* Amiodarone 200 MG TABLET PO SCH (08:36)
[2017-01-21] MEDS: Aspirin Enteric Coated 81 MG Tablet PO SCH (08:36)
[2017-01-21] MEDS: Sennosides/Docusate Sodium TABLET PO SCH ×2 (08:36→20:42)
[2017-01-21] MEDS: Famotidine 20 MG TABLET PO SCH (08:37)
--- NOTE | 2017-01-21 12:36 | Physical Med Progress Note ---
Date of Encounter: 01/21/17 Time of Encounter: 12:27 Assessment and Plan (1) CVA (cerebrovascular accident due to intracerebral hemorrhage) Current Visit: Yes Status: Acute Qualifiers: Intracerebral hemorrhage etiology: nontraumatic Cerebral hemorrhage location: unspecified cerebral location Laterality: left Qualified Code(s): I61.9 - Nontraumatic intracerebral hemorrhage, unspecified Physical Medicine-PN: Subj Interval history: PMR PCC note Mr. Herndon had a home safety visit. He did well with the visit. Did well with steps and transfers. Did well with verbal commands. He has made progress with improved spontaneous speech. He has made improvement with naming objects with 50% accuracy. Will continue with intensive PT/OT/ST/TR. No need for overnight visit at this time. Plan for discharge to home on 01/23/17. - Constitutional Vitals: Vital Signs Temp Pulse Resp BP Pulse Ox 01/21/17 07:00 98.0 F 60 16 115/75 97 01/20/17 19:26 98.5 F 68 16 119/75 93 Intake and Output 01/20/17 01/21/17 01/21/17 23:59 07:59 15:59 Intake Total 540 / 540 Balance 540 / 540 Intake: Oral 540 / 540 Other: Meal Breakfast Percent of Meal Consumed 100% # Voids 1 Physical Medicine-PN: Obj Data - Labs CBC & Chem 7: 01/19/17 05:10 01/19/17 05:10 - ABG Interpretation ABG results: PT/INR, D-dimer PT 12.2 Seconds (9.4-12.1) H 12/24/16 05:00 - VTE Documentation of Mechanical Device: Graduated compression elastic hosiery Consult Discharge Plan - Plan Referrals: NO,PCP [Primary Care Provider] - (Neo Durbin MD [facility] 02/02/17 at 9:15 Himanshu Caraballo MD [facility] 04/15/17 at 8:30 )
[2017-01-21] MEDS: Fenofibrate 54 MG TABLET PO SCH (17:19)
[2017-01-21] MEDS: Mirtazapine 15 MG TABLET PO SCH (20:43)
[2017-01-22] MEDS: Levothyroxine 25 MCG TABLET PO SCH (06:06)
[2017-01-22] MEDS: Famotidine 20 MG TABLET PO SCH (07:46)
[2017-01-22] MEDS: Aspirin Enteric Coated 81 MG Tablet PO SCH (07:46)
[2017-01-22] MEDS: *HR* Amiodarone 200 MG TABLET PO SCH (07:47)
[2017-01-22] MEDS: Sennosides/Docusate Sodium TABLET PO SCH ×2 (07:49→19:35)
--- NOTE | 2017-01-22 14:54 | Discharge Summary ---
Date of Encounter: 01/22/17 Time of Encounter: 14:51 - Discharge Diagnosis (1) CVA (cerebrovascular accident due to intracerebral hemorrhage) Priority: Primary Status: Acute Comments: Mr. Herndon had a home safety visit. He did well with the visit. Did well with steps and transfers. Did well with verbal commands. He has made progress with improved spontaneous speech. He has made improvement with naming objects with 50% accuracy. Will continue with intensive PT/OT/ST/TR. No need for overnight visit at this time. Plan for discharge to home on 01/23/17. Qualifiers: Intracerebral hemorrhage etiology: nontraumatic Cerebral hemorrhage location: unspecified cerebral location Laterality: left Qualified Code(s): I61.9 - Nontraumatic intracerebral hemorrhage, unspecified - Discharge Medications Home Medications: Amlodipine [Norvasc] 5 mg PO DAILY 12/23/16 [History] Aspirin Enteric Coated [Aspirin EC] 81 mg PO DAILY 12/23/16 [History] Atorvastatin Calcium [Lipitor] 80 mg PO HS 12/23/16 [History] Fenofibrate [Tricor] 54 mg PO DAILY 12/23/16 [History] Metoprolol [Lopressor] 25 mg PO BID 12/23/16 [History] Neomycin/Polymyxin B Sulf/Hc [Xvlxucev-Ckyqwfelf-Fj Ear Susp] 10 ml OT QID 12/23 [History] Mirtazapine [Remeron] 15 mg PO HS tablet 01/22/17 [Rx] Allergies/Adverse Reactions: Allergies No Known Allergies Allergy (Verified 12/23/16 22:09) Date of admission: 12/23/16 19:49 Primary care physician: PCP NO Consults: 12/23/16 22:22 Consult to Occupational Therapy [CONS] Routine Comment: eval and treat Consult to Physical Therapy [CONS] Routine Comment: eval and treat Consult to Recreational Therapy [CONS] Routine Comment: Consult to Pipe Chipper [CONS] Routine Reason for SW Consult: discharge planning 12/23/16 22:27 Consult to Speech Therapy [CONS] Routine Comment: Evaluate, develop and implement POC Reason for Consult: eval and treat Call Completed: No Discharging clinician: Didier Reilly Anticipated date of discharge: 01/23/17 - Patient Status Disposition: Home, Self-Care Condition: Fair Functional capacity at discharge: independent ambulation Overall status at discharge: patient is progressing back to baseline - Discharge Instructions Instructions: Hemorrhagic Stroke (DC) Follow Up With: NO,PCP [Primary Care Provider] - (Neo Durbin MD Green Meat Grader 02/02/17 at 9:15 Himanshu Caraballo MD [facility] [place] 04/15/17 at 8:30 ) - Diet and Activity Activity: increase activity as tolerated Diet: advance to your usual diet Interval History: Patient was admitted here for PT OT Did well with steps and transfers. Did well with verbal commands. He has made progress with improved spontaneous speech. He has made improvement with naming objects with 50% accuracy. Will continue with intensive PT/OT/ST/TR. No need for overnight visit at this time. Plan for discharge to home on 01/23/17. Hospital course: Mr. Herndon is a 66 year old male Time spent discussing smoking cessation with patient: more than 10 minutes - Time Spent with Patient Total time spent providing and/or coordinating discharge services: Less than 30 minutes - Constitutional Vitals: Temp Pulse Resp BP Pulse Ox 97.8 F 68 16 120/71 94 01/22/17 07:54 01/22/17 07:54 01/22/17 07:54 01/22/17 07:54 01/22/17 07:54 General appearance: Present: A&O X 2, no acute distress - Respiratory Respiratory exam: Present: CTAB. Absent: accessory muscle use, rales, rhonchi, wheezes - Cardiovascular Cardiovascular exam: Present: RRR, +S1, +S2. Absent: diastolic murmur, gallop, rubs, systolic murmur - GI/Abdominal GI/Abdominal exam: Present: normal bowel sounds, soft, no peritoneal signs. Absent: distended, tenderness - Extremities Exam Extremities exam: Present: warm, radial pulses palpable and symetrical. Absent : calf tenderness, cyanotic, pedal edema - VTE Documentation of Mechanical Device: Graduated compression elastic hosiery
[2017-01-22] MEDS: Fenofibrate 54 MG TABLET PO SCH (17:10)
[2017-01-22] MEDS: Mirtazapine 15 MG TABLET PO SCH (19:35)
[2017-01-23 07:53] VITALS: BP 121/83
[2017-01-23] MEDS: *HR* Amiodarone 200 MG TABLET PO SCH (08:07)
[2017-01-23] MEDS: Famotidine 20 MG TABLET PO SCH (08:08)
[2017-01-23] MEDS: Levothyroxine 25 MCG TABLET PO SCH (08:08)
[2017-01-23] MEDS: Sennosides/Docusate Sodium TABLET PO SCH (08:08)
[2017-01-23] MEDS: Aspirin Enteric Coated 81 MG Tablet PO SCH (08:08)
== END 2017-01-23 11:20 | disposition home or self-care (01) | DRG 57 ==
LOC: INPGRE 19:49
PROVIDERS: ADMIT Internal Medicine; ATTEND Internal Medicine

== ENCOUNTER 2017-06-29 16:17 | Inpatient (IN) ==
[2017-06-29] MEDS ORDERED: Acetaminophen 325 MG TABLET PO PRN (18:56)
[2017-06-29] MEDS: *HR* OxyCODONE Immed Rel 5 MG TABLET PO PRN (22:07)
[2017-06-29] MEDS: Ibuprofen 600 MG TABLET PO PRN (23:54)
[2017-06-29] MEDS: Gabapentin 100 MG CAPSULE PO SCH (23:54)
[2017-06-30] MEDS: *HR* OxyCODONE Immed Rel 5 MG TABLET PO PRN ×3 (04:31→20:18)
[2017-06-30 05:40] LABS: Basophils # 0.1 K/mcL (0.0-0.2); Basophils % 0.9 %; Eosinophils # 0.5 K/mcL (0.0-0.6); Eosinophils % 6.8 %; Hematocrit 37.1 % (37.5-50.1); Hemoglobin 12.3 g/dL (12.9-16.9); Immature Granulocytes % 1.5 % (0-4); Lymphocytes # 2.4 K/mcL (0.6-4.6); Lymphocytes % 34.8 %; Mean Corpuscular HGB Conc 33.2 g/dL (31.6-35.5); Mean Corpuscular Hemoglobin 29.7 pg (28.0-33.3); Mean Corpuscular Volume 89.6 fL (83.0-100.0); Mean Platelet Volume 9.5 fL (9.4-12.4); Monocytes # 0.6 K/mcL (0.0-1.3); Monocytes % 8.1 %; Neutrophils # 3.2 K/mcL (1.6-8.9); Platelet Count 344 K/mcL (140-400); Prothrombin Time 11.2 Seconds (9.4-12.1); Red Blood Count 4.14 M/mcL (4.19-5.50); Red Cell Distribution Width 13.6 % (11.5-14.5); Segmented Neutrophils % 47.9 %
[2017-06-30 05:43] LABS: Activated Partial Thrombo Time 28.7 Seconds (26.0-36.0)
[2017-06-30 05:51] LABS: BUN/Creatinine Ratio 17 (6-26); Blood Urea Nitrogen 17 mg/dL (8-26); Calcium 9.3 mg/dL (8.6-10.8); Carbon Dioxide 26 mEq/L (19-29); Chloride 107 mEq/L (98-109); Glucose 107 mg/dL (70-99); Osmolality,Calculated 294 (280-300); Sodium 141 mEq/L (136-145); eGFR For African Americans > 60 (> 60); eGFR For Non-African Americans > 60 (> 60)
[2017-06-30] MEDS: amLODIPine 5 MG TABLET PO SCH (08:43)
[2017-06-30] MEDS: Gabapentin 100 MG CAPSULE PO SCH ×3 (08:43→23:28)
[2017-06-30] MEDS: Aspirin Enteric Coated 81 MG Tablet PO SCH (08:43)
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
[2017-06-30] MEDS: Ibuprofen 600 MG TABLET PO PRN (13:52)
[2017-06-30] MEDS: Fenofibrate 54 MG TABLET PO SCH (16:20)
[2017-07-01] MEDS: *HR* OxyCODONE Immed Rel 5 MG TABLET PO PRN ×4 (03:40→20:30)
[2017-07-01] MEDS: amLODIPine 5 MG TABLET PO SCH (08:20)
[2017-07-01] MEDS: Gabapentin 100 MG CAPSULE PO SCH ×3 (08:20→23:15)
[2017-07-01] MEDS: Aspirin Enteric Coated 81 MG Tablet PO SCH (08:21)
[2017-07-01] MEDS: Ibuprofen 600 MG TABLET PO PRN (11:38)
--- NOTE | 2017-07-01 12:17 | Physical Med Progress Note ---
Date of Encounter: 07/01/17 Time of Encounter: 12:13 Physical Medicine-PN: Subj Interval history: PMR PCC Note Patient is s/p rib fractures. He has severe pain with transfers. His pain limits his ability to participate with therapies. He will need to continue with pain medications. Plan for discharge to home on 07/03/17. - Constitutional Vitals: Vital Signs Temp Pulse Resp BP Pulse Ox 07/01/17 09:10 98.1 F 91 15 135/81 90 06/30/17 19:13 98.0 F 82 18 147/89 92 Intake and Output 06/30/17 07/01/17 07/01/17 23:59 07:59 15:59 Intake Total 300 / 300 360 / 360 Balance 300 / 300 360 / 360 Intake: Oral 300 / 300 360 / 360 Other: Meal Breakfast Percent of Meal Consumed 100% # Voids 1 1 Physical Medicine-PN: Obj Data - Labs CBC & Chem 7: 06/30/17 05:25 06/30/17 05:25 - ABG Interpretation ABG results: PT/INR, D-dimer PT 11.2 Seconds (9.4-12.1) 06/30/17 05:25 - VTE Documentation of Mechanical Device: Graduated compression elastic hosiery Consult Discharge Plan - Plan Referrals: NONE,PCP [Primary Care Provider] -
[2017-07-01] MEDS: Fenofibrate 54 MG TABLET PO SCH (17:09)
[2017-07-02] MEDS: *HR* OxyCODONE Immed Rel 5 MG TABLET PO PRN ×3 (05:50→15:13)
[2017-07-02] MEDS: amLODIPine 5 MG TABLET PO SCH (08:03)
[2017-07-02] MEDS: Gabapentin 100 MG CAPSULE PO SCH ×3 (08:04→23:50)
[2017-07-02] MEDS: Aspirin Enteric Coated 81 MG Tablet PO SCH (08:04)
--- NOTE | 2017-07-02 13:31 | Internal Med Progress Note ---
Date of Encounter: 07/02/17 Time of Encounter: 13:29 - Assessment and plan (1) Multiple trauma to chest Current Visit: Yes Status: Acute Assessment and plan: He had multiple trauma he still drinks a lot of rib pain. We will check a chest x-ray before discharge tomorrow he did have pneumothoraces with chest tubes. Qualifiers: Qualified Code(s): S29.9XXD - Unspecified injury of thorax, subsequent encounter - Time Spent With Patient less than 15 minutes - Subjective Interval history: Ajax doing well he will be discharged tomorrow if still having a lot of pain. - Constitutional Vitals: Temp Pulse Resp BP Pulse Ox 98.3 F 79 18 151/90 93 07/02/17 08:00 07/02/17 08:00 07/02/17 08:00 07/02/17 08:00 07/02/17 08:00 - Head Head exam: Present: atraumatic, normal inspection, normocephalic - Neck Neck exam general surgery: Present: supple, trachea midline. Absent: lymphadenopathy - Respiratory Respiratory exam: Present: CTAB. Absent: accessory muscle use, rales, rhonchi, wheezes - Cardiovascular Cardiovascular exam: Present: RRR, +S1, +S2. Absent: diastolic murmur, gallop, rubs, systolic murmur Internal Medicine: Result - Labs CBC & Chem 7: 06/30/17 05:25 06/30/17 05:25 Labs: Lab is okay - ABG Interpretation ABG results: PT/INR, D-dimer PT 11.2 Seconds (9.4-12.1) 06/30/17 05:25 - VTE Documentation of Mechanical Device: Graduated compression elastic hosiery Consult Discharge Plan - Plan Referrals: NONE,PCP [Primary Care Provider] -
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
[2017-07-02] MEDS: Fenofibrate 54 MG TABLET PO SCH (17:31)
[2017-07-02] MEDS: Ibuprofen 600 MG TABLET PO PRN (20:33)
[2017-07-03 07:25] VITALS: BP 141/88
[2017-07-03] MEDS: Gabapentin 100 MG CAPSULE PO SCH (08:32)
[2017-07-03] MEDS: *HR* OxyCODONE Immed Rel 5 MG TABLET PO PRN (08:32)
[2017-07-03] MEDS: amLODIPine 5 MG TABLET PO SCH (08:32)
[2017-07-03] MEDS: Aspirin Enteric Coated 81 MG Tablet PO SCH (08:33)
== END 2017-07-03 11:30 | disposition home or self-care (01) | DRG 561 ==
LOC: INPGRE 19:42
PROVIDERS: ADMIT Internal Medicine; ATTEND Internal Medicine